=== PATIENT | female | born 1955 | race Caucasian/White ===

== ENCOUNTER 2017-02-02 09:59 | Inpatient (IN) | payer OTHER ==
[~2017-02-02] VITALS: Ht 167.6 cm; Wt 77.9 kg
[2017-02-02] VITALS (19 sets, daily range): BP systolic 79–158; BP diastolic 43–79; PULSE 62–75; RESP 11–22; Ht 167.6 cm; Wt 77.9 kg
[~2017-02-02 09:59] MED LIST: AMIT50TA3 PO; GABA300C PO; LORA0.5T PO; NAPR-688 PO; TRAM50TA2 PO
[2017-02-02] MEDS ORDERED: AMIT75TA2 PO (10:27)
[2017-02-02] MEDS ORDERED: FLUT16SP17 NASAL (10:28)
[2017-02-02] MEDS ORDERED: BIMA2.5D BOTH EYES (10:28)
[2017-02-02] MEDS ORDERED: MOME13HF2 INHALATION (10:28)
[2017-02-02] MEDS ORDERED: ALBU18HF INHALATION (10:29)
[2017-02-02] MEDS ORDERED: HYDR-905 PO (10:30)
[2017-02-02 12:09] LABS: ALBUMIN 4.5 g/dl (3.3-4.9); ALBUMIN/GLOBULIN RATIO 1.5; BILIRUBIN,INDIRECT 0.3 mg/dl (0-1.1); BILIRUBIN,TOTAL 0.3 mg/dl (0.2-1.3); TOTAL PROTEIN 7.5 g/dl (6.1-8.1)
[2017-02-02] MEDS ORDERED: GELATIN SIZE 100 SPONGE ONE ×2 (12:12→14:12)
[2017-02-02] MEDS ORDERED: BUPIVACAINE 0.5%/EPI (SDV) 30 ML INJ ONE (12:12)
[2017-02-02] MEDS ORDERED: THROMBIN 5000 UNIT VIAL ONE ×2 (12:13→14:12)
[2017-02-02] MEDS ORDERED: POLYMYXIN/BACITRACIN 1L IRRIG ONE (12:13)
[2017-02-02 12:14] LABS: CALCIUM 9.5 mg/dl (8.4-10.2); CREATININE 0.75 mg/dl (0.44-1.00); POTASSIUM 3.8 mmol/L (3.5-5.1)
--- NOTE | 2017-02-02 12:22 | HP ---
DATE OF ADMISSION: 02/02/2017 HISTORY OF PRESENT ILLNESS: Patient was originally seen in office for evaluation of back pain with radiation of pain to the lower extremities. She was diagnosed with lumbar spondylosis with stenosis, L4-5, S1, and conservative management was offered to the patient in the form of a lumbar epidural steroid injection. The patient has had 4 lumbar epidural steroid injections without much relief. She wants to have something more definitive to be done. She has failed injections. She has failed conservative management in the form of physical therapy, as well as pain management. The patient wants something more definitive to be done. PAST MEDICAL HISTORY AND PAST SURGICAL HISTORY: Per chart. SOCIAL HISTORY: Per chart. ALLERGIES: SULFA DRUGS. MEDICATIONS: Medications taken at home per chart. FAMILY HISTORY: Unremarkable. REVIEW OF SYSTEMS: Additional 10-point review of systems conducted. Pertinent positives stated in HPI, otherwise negative. PHYSICAL EXAMINATION: GENERAL APPEARANCE: Patient is awake, alert, oriented, follows commands. HEENT: Unremarkable. No cyanosis. Mouth: No lesions. PULMONARY: No dyspnea, no tachypnea. CARDIAC: No JVD. No pedal edema. ABDOMEN: Soft, with bowel sounds. No guarding. NEUROLOGIC: Moves upper extremities equally at the shoulders, elbows, wrists. Has good strength. Sensation is intact. Lower extremity examination: Flexion/extension of the lumbar spine: The patient develops severe low back pain with flexion and extension of the left hip. She has equal strength in her knees. Equal strength in ankles. Sensation is intact. DATA: MRI of the lumbar spine dated 09/25/2016, showed lumbar spondylosis with stenosis in all L4-5, S1. RECOMMENDATIONS: For patient to undergo surgical intervention in the form of a lumbar laminectomy, 4-5, sacral 1 with posterolateral fusion and pedicle screw instrumentation with possible interbody. This was discussed with the patient in great detail. Complications of surgery were discussed with the patient in detail including infection, bleeding, permanent nerve damage, , complications associated with anesthesia, including stroke, heart attack. The patient agrees and wants to proceed. Patient will be admitted to the hospital thereafter for further care and pain management. Dictated By: Herbert Gomes MD /jg/shasta /Document#: [id number]
[2017-02-02] MEDS ORDERED: MIDAZOLAM 1 MG/ML 2 ML INJ ONE (13:28)
[2017-02-02] MEDS ORDERED: hydrALAzine 20 MG INJ ONE (13:56)
[2017-02-02] MEDS ORDERED: niCARdipine 50 MG in SOD CHLORIDE 0.9% 480 ML IV PRN (14:00)
[2017-02-02] MEDS ORDERED: ONDANSETRON 4 MG INJ ONE (16:14)
[2017-02-02] MEDS ORDERED: ROCURONIUM 50 MG INJ ONE (16:15)
[2017-02-02] MEDS ORDERED: CEFAZOLIN 1 GM INJ ONE (16:15)
[2017-02-02] MEDS ORDERED: PROPOFOL 20 ML ONE (16:15)
[2017-02-02] MEDS ORDERED: LIDOCAINE 2% (SDV) 5 ML INJ ONE (16:15)
--- NOTE | 2017-02-02 16:17 | OPR ---
Date/Time of Note Date/Time of Note DATE: 02/02/17 TIME: 16:14 Operative Report Preoperative Diagnosis lumbar spondylosis with stenosis l4-5-s1 Postoperative Diagnosis same Operation/Procedure Performed lumbar 4-5-s1 laminectomy with posterolateral fusion and pedicle screw instrumentation Surgeon Jose Arguelles Roll Up Helper Jareth IRIZARRY Anesthesia Type: general Estimated Blood Loss: 200 - 250 ml's Transfusion none Specimen none Grafts/Implants pedicle screw instrumentation l4-5-s1 Complications none Procedure Description lumbar 4-5-s1 laminectomy with fusion and instrumentation JOSE ARGUELLES MD Feb 02, 2017 16:17
[2017-02-02] MEDS ORDERED: morphine 10 MG INJ ONE (16:22)
[2017-02-02] MEDS ORDERED: FENTAnyl 50 MCG/ML VIAL ONE (16:40)
[2017-02-02] MEDS: HYDROmorphONE 0.2 MG/ML PCA IV SCH (16:52)
[2017-02-02] MEDS ORDERED: DIPHENHYDRAMINE 50 MG INJ IV PRN (17:00)
[2017-02-02] MEDS ORDERED: HYDROmorphONE (0.2 MG/ML) 10ML SYG IV PRN ×2 (17:00)
[2017-02-02] MEDS ORDERED: MEPERIDINE 25 MG INJ IV PRN (17:00)
[2017-02-02] MEDS ORDERED: ONDANSETRON 4 MG INJ IV PRN (17:00)
[2017-02-02] MEDS ORDERED: METOCLOPRAMIDE 10 MG INJ IV PRN (17:00)
[2017-02-02] MEDS ORDERED: hydrALAzine 20 MG INJ IV PRN (17:00)
[2017-02-02] MEDS ORDERED: LABETALOL HCL 20MG INJ IV PRN (17:00)
[2017-02-02] MEDS ORDERED: FENTAnyl 50 MCG/ML VIAL IV PRN (17:00)
[2017-02-02] MEDS ORDERED: EPHEDrine SULFATE 50 MG/5 ML SYG IV PRN (17:30)
[2017-02-02] MEDS ORDERED: LACTATED RINGER'S 250 ML IV ONE (17:30)
--- NOTE | 2017-02-02 17:40 | HP ---
Date/Time of Note Date/Time of Note DATE: 02/02/17 TIME: 17:34 Assessment/Plan VTE Prophylaxis VTE Prophylaxis Intervention: SCD's Lines/Catheters IV Catheter Type (from Nrsg): Peripheral IV Assessment/Plan Assessment/Plan - Lumbar spondylosis with stenosis L4-5-S1. Status post lumbar L4-S5 laminectomy with posterolateral fusion and pedicle screws instrumentation by Dr. Gomes. Continue Dilaudid SIZE MAKER. - History of asthma, continue Dulera,continue Xopenex as needed for shortness of breath - Prediabetes, check hemoglobin A1c. - Chronic back pain - Depression, continue Elavil Further recommendations based on clinical course. Plan of care discussed with Dr. Craig. HPI/ROS Admit Date/Time Admit Date/Time Feb 02, 2017 at 09:59 Hx of Present Illness Patient is 61-year-old female with acute on chronic back pain. Patient was diagnosed with lumbar spondylosis with stenosis. Patient failed conservative treatment with steroids and physical therapy. Patient was evaluated by Dr. Gomes in orthopedic surgery consultation patient was brought to the hospital and underwent L4 S1 meniscectomy was posterior lateral fusion. Patient is a experienced significant pain in patient will be starting on Dilaudid SIZE MAKER and admitted for further management. PMH/Family/Social Past Medical History Medical History: other (Asthma) Past Surgical History Past Surgical Hx: no surgical history Family History Significant Family History: no pertinent family hx Social History Alcohol Use: none Smoking Status: Never smoker Drug Use: none Exam/Review of Systems Vital Signs Vitals Vital Signs Date Time Temp Pulse Resp B/P Pulse Ox O2 Delivery O2 Flow Rate FiO2 02/02/17 17:26 64 15 99/57 100 Nasal Cannula 02/02/17 16:36 8.0 02/02/17 16:31 98.7 Exam Constitutional: alert, oriented Head: normocephalic Neck: supple Respiratory: normal air movement Cardiovascular: nl pulses Gastrointestinal: non-tender, soft Musculoskeletal: other (Status post back surgery) Extremities: normal pulses Neurological: nl mental status Skin: nl turgor Labs Result Diagram: 02/02/17 1040 Medications Medications Current Medications Dextrose/Lactated Ringer's 1,000 ml @ 150 mls/hr Q6H40M IV ; Start 02/02/17 at 14:00 Cefazolin Sodium (Ancef 1 Gm/50 ml (Pmx)) 50 ml @ 100 mls/hr Q8 IVPB ; Start 02/02/17 at 14:00; Stop 02/04/17 at 14:00 Ondansetron HCl (Zofran Inj) 4 mg Q6H PRN IV NAUSEA AND/OR VOMITING; Start at 14:00 Hydromorphone HCl 6 mg 6 mg Q4PCA IV Last administered on 02/02/17 16:52; Admin Dose 6 MG; Start 02/02/17 at 17:00 Lactated Ringer's (Lr) 250 ml @ 250 mls/hr Q1H ONCE IV Last administered on 17:27; Admin Dose 250 MLS/HR; Start 02/02/17 at 17:30; Stop 02/02/17 at 18:29 DAWIT GARRETT Feb 02, 2017 17:40
[2017-02-02] MEDS ORDERED: LEVALBUTEROL (NEB) 0.63 MG/3 ML AMP HHN PRN (18:00)
[2017-02-02] MEDS: SALMETEROL/FLUTICASONE 250/50 INHA INH SCH (21:00)
[2017-02-02] MEDS: AMITRIPTYLINE 25 MG TAB PO SCH ×2 (21:00→23:52)
[2017-02-02] MEDS: DEXTROSE 5%-LR 1,000 ML IV SCH ×2 (21:01→22:13)
[2017-02-02] MEDS: CEFAZOLIN 1 GM/50 ML (PMX) 50 ML IVPB SCH ×2 (22:00→22:13)
--- NOTE | 2017-02-02 22:18 | RADRPT ---
PROCEDURE: Intraoperative fluoroscopy CLINICAL INDICATION: pain TECHNIQUE: Fluoroscopic spot images from an intraoperative procedure submitted. Fluoro time: 0.3 min Number of images/fluoroscopic sequences: 5 COMPARISON: none FINDINGS: Fluoroscopic images of the lumbar spine demonstrates posterior lumbar spine fusion at L4-S1. This as sumes there is no transitional anatomy. RPTAT: AA IMPRESSION: Intraoperative films of the lumbar spine were obtained. Please refer to the operative note for more information. .Blaine Kim MD, Date Time Electronically viewed and signed by .Blaine Kim MD, on 02/02/2017 22:18 .S/
[2017-02-02] MEDS: ONDANSETRON 4 MG INJ IV PRN (23:39)
[2017-02-03] VITALS: BP 114/54; RESP 18
[2017-02-03 02:00] VITALS: BP 110/55; RESP 19
[2017-02-03] MEDS: DEXTROSE 5%-LR 1,000 ML IV SCH ×4 (03:41→22:11)
[2017-02-03] MEDS: HYDROmorphONE 0.2 MG/ML PCA IV SCH ×2 (04:32→17:37)
[2017-02-03 06:09] LABS: BASOPHILS % 0.4 % (0.0-2.0); EOSINOPHILS % 0.2 % (0.0-7.0); HEMATOCRIT 30.7 % (37.0-47.0); HEMOGLOBIN 10.1 g/dl (12.0-16.0); LYMPHOCYTES # 2.9 10^3/ul (0.8-2.9); LYMPHOCYTES % 32.5 % (15.0-51.0); MEAN CORPUSCULAR HEMOGLOBIN 30.3 pg (29.0-33.0); MEAN CORPUSCULAR HGB CONC 32.9 g/dl (32.0-37.0); MEAN CORPUSCULAR VOLUME 92.2 fl (82.0-101.0); MEAN PLATELET VOLUME 9.2 fl (7.4-10.4); MONOCYTE # 0.6 10^3/ul (0.3-0.9); MONOCYTES % 6.7 % (0.0-11.0); NEUTROPHIL # 5.4 10^3/ul (1.6-7.5); NEUTROPHILS % 59.8 % (39.0-77.0); PLATELET COUNT 219 10^3/UL (140-415); RED BLOOD COUNT 3.33 10^6/ul (4.20-5.40); RED CELL DISTRIBUTION WIDTH 12.9 % (11.5-14.5)
[2017-02-03] MEDS: CEFAZOLIN 1 GM/50 ML (PMX) 50 ML IVPB SCH ×3 (06:57→21:29)
[2017-02-03 07:04] LABS: CALCIUM 8.3 mg/dl (8.4-10.2); CREATININE 0.7 mg/dl (0.44-1.00); POTASSIUM 3.9 mmol/L (3.5-5.1)
[2017-02-03] MEDS: ONDANSETRON 4 MG INJ IV PRN ×3 (07:28→21:29)
[2017-02-03 07:45] VITALS: BP 87/51; RESP 18
[2017-02-03] MEDS: SALMETEROL/FLUTICASONE 250/50 INHA INH SCH ×2 (09:44→21:18)
[2017-02-03 14:55] VITALS: BP 101/55; RESP 20
--- NOTE | 2017-02-03 15:50 | PN ---
Date/Time of Note Date/Time of Note DATE: 02/03/17 TIME: 15:46 Assessment/Plan VTE Prophylaxis VTE Prophylaxis Intervention: SCD's Lines/Catheters IV Catheter Type (from Nrsg): Peripheral IV Urinary Cath still in place: Yes Reason Cath still needed: urinary retention Assessment/Plan Chief Complaint/Hosp Course Patient is using Dilaudid SHEET METAL PATTERN CUTTER for pain, pain is well controlled, not cleared by surgery to start physical therapy yet. Assessment/Plan - Lumbar spondylosis with stenosis L4-5-S1. Status post lumbar L4-S5 laminectomy with posterolateral fusion and pedicle screws instrumentation by Dr. Gomes. Continue Dilaudid SHEET METAL PATTERN CUTTER. - History of asthma, continue Dulera,continue Xopenex as needed for shortness of breath - Prediabetes, check hemoglobin A1c. - Chronic back pain - Depression, continue Elavil Further recommendations based on clinical course. Plan of care discussed with Dr. Craig. Problems: Exam/Review of Systems Vital Signs Vitals Vital Signs Date Time Temp Pulse Resp B/P Pulse Ox O2 Delivery O2 Flow Rate FiO2 02/03/17 14:55 99.8 75 20 101/55 98 02/02/17 17:51 Nasal Cannula 2.0 Intake and Output 02/02/17 02/02/17 02/03/17 15:00 23:00 07:00 Intake Total 1850 ml 1000 ml Output Total 1050 ml 895 ml Balance -1050 ml 955 ml 1000 ml Exam Constitutional: alert, oriented Respiratory: normal air movement Cardiovascular: nl pulses Gastrointestinal: non-tender, soft Musculoskeletal: other (Status post back surgery) Extremities: normal pulses Neurological: nl mental status Results Result Diagram: 02/03/17 0433 02/03/17 0432 Results 24 hrs Laboratory Tests Test 02/03/17 04:32 02/03/17 04:33 02/03/17 06:05 Sodium Level 138 Potassium Level 3.9 Chloride Level 103 Carbon Dioxide Level 25 Anion Gap 14 Blood Urea Nitrogen 9 Creatinine 0.70 Glucose Level 124 Calcium Level 8.3 L White Blood Count 9.0 Red Blood Count 3.33 L Hemoglobin 10.1 L Hematocrit 30.7 L Mean Corpuscular Volume 92.2 Mean Corpuscular Hemoglobin 30.3 Mean Corpuscular Hemoglobin Concent 32.9 Red Cell Distribution Width 12.9 Platelet Count 219 Mean Platelet Volume 9.2 Neutrophils % 59.8 Lymphocytes % 32.5 Monocytes % 6.7 Eosinophils % 0.2 Basophils % 0.4 Nucleated Red Blood Cells % 0.0 Neutrophils # 5.4 Lymphocytes # 2.9 Monocytes # 0.6 Eosinophils # 0.0 Basophils # 0.0 Nucleated Red Blood Cells # 0.0 Lab Scanned Report LAB Medications Medications Current Medications Dextrose/Lactated Ringer's 1,000 ml @ 150 mls/hr Q6H40M IV Last administered on 02/03/17 14:34; Admin Dose 150 MLS/HR; Start 02/02/17 at 14:00 Cefazolin Sodium (Ancef 1 Gm/50 ml (Pmx)) 50 ml @ 100 mls/hr Q8 IVPB Last administered on 02/03/17 13:14; Admin Dose 100 MLS/HR; Start 02/02/17 at 14: 00; Stop 02/04/17 at 14:00 Ondansetron HCl (Zofran Inj) 4 mg Q6H PRN IV NAUSEA AND/OR VOMITING Last administered on 02/03/17 14:48; Admin Dose 4 MG; Start 02/02/17 at 14:00 Hydromorphone HCl (Dilaudid SHEET METAL PATTERN CUTTER) 6 mg Q4PCA IV Last administered on 02/03/17 04:32; Admin Dose 6 MG; Start 02/02/17 at 17:00 Amitriptyline HCl (Elavil) 75 mg QHS PO Last administered on 02/02/17 23:52; Admin Dose 75 MG; Start 02/02/17 at 21:00 Salmeterol Xinafoate/ Fluticasone (Advair 250/50 Diskus) 1 inh BID INH Last administered on 02/03/17 09:44; Admin Dose 1 INH; Start 02/02/17 at 21:00 DAWIT GARRETT Feb 03, 2017 15:50
[2017-02-03 19:10] VITALS: BP 115/58; RESP 16
[2017-02-03] MEDS: AMITRIPTYLINE 25 MG TAB PO SCH (21:18)
[2017-02-04 01:50] VITALS: BP 109/58; RESP 16
[2017-02-04] MEDS: ACETAMINOPHEN 325 MG TAB PO PRN ×2 (05:19→13:39)
[2017-02-04] MEDS: CEFAZOLIN 1 GM/50 ML (PMX) 50 ML IVPB SCH ×2 (05:19→13:39)
[2017-02-04 05:46] LABS: CALCIUM 8.5 mg/dl (8.4-10.2); CREATININE 0.58 mg/dl (0.44-1.00); POTASSIUM 3.7 mmol/L (3.5-5.1)
[2017-02-04] MEDS: DEXTROSE 5%-LR 1,000 ML IV SCH ×3 (06:21→19:41)
[2017-02-04] MEDS: HYDROmorphONE 0.2 MG/ML PCA IV SCH (06:59)
[2017-02-04 07:16] LABS: BASOPHILS % 0.2 % (0.0-2.0); EOSINOPHILS % 0.1 % (0.0-7.0); HEMATOCRIT 29.9 % (37.0-47.0); HEMOGLOBIN 9.8 g/dl (12.0-16.0); LYMPHOCYTES # 2.2 10^3/ul (0.8-2.9); LYMPHOCYTES % 22.6 % (15.0-51.0); MEAN CORPUSCULAR HEMOGLOBIN 30.5 pg (29.0-33.0); MEAN CORPUSCULAR HGB CONC 32.8 g/dl (32.0-37.0); MEAN CORPUSCULAR VOLUME 93.1 fl (82.0-101.0); MEAN PLATELET VOLUME 9.4 fl (7.4-10.4); MONOCYTE # 0.8 10^3/ul (0.3-0.9); MONOCYTES % 7.7 % (0.0-11.0); NEUTROPHIL # 6.8 10^3/ul (1.6-7.5); NEUTROPHILS % 69.1 % (39.0-77.0); PLATELET COUNT 197 10^3/UL (140-415); RED BLOOD COUNT 3.21 10^6/ul (4.20-5.40); RED CELL DISTRIBUTION WIDTH 12.5 % (11.5-14.5); WHITE BLOOD COUNT 9.8 10^3/ul (4.8-10.8)
[2017-02-04 08:30] VITALS: BP 120/58; RESP 18
[2017-02-04] MEDS: SALMETEROL/FLUTICASONE 250/50 INHA INH SCH ×2 (09:23→20:54)
[2017-02-04] MEDS: MAGNESIUM HYDROXIDE 30ML CUP PO PRN (13:39)
[2017-02-04] MEDS: ONDANSETRON 4 MG INJ IV PRN (13:42)
--- NOTE | 2017-02-04 14:10 | PN ---
Date/Time of Note Date/Time of Note DATE: 02/04/17 TIME: 14:08 Assessment/Plan VTE Prophylaxis VTE Prophylaxis Intervention: other Lines/Catheters IV Catheter Type (from Nrs): Peripheral IV Urinary Cath still in place: Yes Assessment/Plan Assessment/Plan - Lumbar spondylosis with stenosis L4-5-S1. - Status post lumbar L4-S5 laminectomy with posterolateral fusion and pedicle screws instrumentation by Dr. Gomes. 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 - History of asthma, continue Dulera,continue Xopenex as needed for shortness of breath - Prediabetes, check hemoglobin A1c. - Chronic back pain - Depression, continue Elavil Further recommendations based on clinical course. Plan of care discussed with Dr. Craig. Exam/Review of Systems Vital Signs Vitals Vital Signs Date Time Temp Pulse Resp B/P Pulse Ox O2 Delivery O2 Flow Rate FiO2 02/04/17 08:30 98.2 86 18 120/58 98 02/02/17 17:51 Nasal Cannula 2.0 Intake and Output 02/03/17 02/03/17 02/04/17 14:59 22:59 06:59 Intake Total 1100 ml 2150 ml 480 ml Output Total 200 ml 1680 ml 1965 ml Balance 900 ml 470 ml -1485 ml Exam Respiratory: clear to auscultation, diminished breath sounds Cardiovascular: nl pulses Gastrointestinal: non-tender, soft Neurological: other Results Result Diagram: 02/04/172 02/04/17 0445 Results 24 hrs Laboratory Tests Test 02/04/17 04:42 02/04/17 04:45 White Blood Count 9.8 Red Blood Count 3.21 L Hemoglobin 9.8 L Hematocrit 29.9 L Mean Corpuscular Volume 93.1 Mean Corpuscular Hemoglobin 30.5 Mean Corpuscular Hemoglobin Concent 32.8 Red Cell Distribution Width 12.5 Platelet Count 197 Mean Platelet Volume 9.4 Neutrophils % 69.1 Lymphocytes % 22.6 Monocytes % 7.7 Eosinophils % 0.1 Basophils % 0.2 Nucleated Red Blood Cells % 0.0 Neutrophils # 6.8 Lymphocytes # 2.2 Monocytes # 0.8 Eosinophils # 0.0 Basophils # 0.0 Nucleated Red Blood Cells # 0.0 Sodium Level 137 Potassium Level 3.7 Chloride Level 99 Carbon Dioxide Level 31 Anion Gap 11 Blood Urea Nitrogen 4 L Creatinine 0.58 Glucose Level 168 Hemoglobin A1c 5.8 Calcium Level 8.5 Medications Medications Current Medications Dextrose/Lactated Ringer's (D5-Lr) 1,000 ml @ 150 mls/hr Q6H40M IV Last administered on 02/04/17 09:23; Admin Dose 150 MLS/HR; Start 02/02/17 at 14: 00 Ondansetron HCl (Zofran Inj) 4 mg Q6H PRN IV NAUSEA AND/OR VOMITING Last administered on 02/04/17 13:42; Admin Dose 4 MG; Start 02/02/17 at 14:00 Hydromorphone HCl (Dilaudid BATTALION FIRE CHIEF) 6 mg Q4PCA IV Last administered on 02/04/17 06:59; Admin Dose 6 MG; Start 02/02/17 at 17:00 Amitriptyline HCl (Elavil) 75 mg QHS PO Last administered on 02/03/17 21:18; Admin Dose 75 MG; Start 02/02/17 at 21:00 Salmeterol Xinafoate/ Fluticasone (Advair 250/50 Diskus) 1 inh BID INH Last administered on 02/04/17 09:23; Admin Dose 1 INH; Start 02/02/17 at 21:00 Acetaminophen (Tylenol Tab) 650 mg Q6H PRN PO PAIN AND OR ELEVATED TEMP Last administered on 02/04/17 13:39; Admin Dose 650 MG; Start 02/03/17 at 22:00 Magnesium Hydroxide (Milk Of Mag) 30 ml DAILY PRN PO CONSTIPATION Last administered on 02/04/17 13:39; Admin Dose 30 ML; Start 02/04/17 at 11:00 Latanoprost (Xalatan) 1 drop HS BOTH EYES ; Start 02/04/17 at 21:00 SHELLY GEORGE Feb 04, 2017 14:10
--- NOTE | 2017-02-04 14:21 | CONS ---
Date/Time of Note Date/Time of Note DATE: 02/04/17 TIME: 14:19 Assessment/Plan Assessment/Plan Additional Assessment/Plan seen/examined awake/alert/follows/moves all feels better today sp l4-5-s1 lami with fusion/instrumentation drain dced pain meds adjusted encourage pt/ot vitals stable. Consultation Date/Type/Reason Admit Date/Time Feb 02, 2017 at 09:59 Exam/Review of Systems Vital Signs Vitals Vital Signs Date Time Temp Pulse Resp B/P Pulse Ox O2 Delivery O2 Flow Rate FiO2 02/04/17 08:30 98.2 86 18 120/58 98 02/02/17 17:51 Nasal Cannula 2.0 Intake and Output 02/03/17 02/03/17 02/04/17 15:00 23:00 07:00 Intake Total 1100 ml 2150 ml 480 ml Output Total 200 ml 1680 ml 1965 ml Balance 900 ml 470 ml -1485 ml Results Result Diagram: 02/04/17 0442 02/04/17 0445 Results 24 hrs Laboratory Tests Test 02/04/17 04:42 02/04/17 04:45 White Blood Count 9.8 Red Blood Count 3.21 L Hemoglobin 9.8 L Hematocrit 29.9 L Mean Corpuscular Volume 93.1 Mean Corpuscular Hemoglobin 30.5 Mean Corpuscular Hemoglobin Concent 32.8 Red Cell Distribution Width 12.5 Platelet Count 197 Mean Platelet Volume 9.4 Neutrophils % 69.1 Lymphocytes % 22.6 Monocytes % 7.7 Eosinophils % 0.1 Basophils % 0.2 Nucleated Red Blood Cells % 0.0 Neutrophils # 6.8 Lymphocytes # 2.2 Monocytes # 0.8 Eosinophils # 0.0 Basophils # 0.0 Nucleated Red Blood Cells # 0.0 Sodium Level 137 Potassium Level 3.7 Chloride Level 99 Carbon Dioxide Level 31 Anion Gap 11 Blood Urea Nitrogen 4 L Creatinine 0.58 Glucose Level 168 Hemoglobin A1c 5.8 Calcium Level 8.5 Medications Medications Current Medications Dextrose/Lactated Ringer's (D5-Lr) 1,000 ml @ 150 mls/hr Q6H40M IV Last administered on 02/04/17t 09:23; Admin Dose 150 MLS/HR; Start 02/02/17 at 14: 00 Ondansetron HCl (Zofran Inj) 4 mg Q6H PRN IV NAUSEA AND/OR VOMITING Last administered on 02/04/17 13:42; Admin Dose 4 MG; Start 02/02/17 at 14:00 Hydromorphone HCl (Dilaudid COOLING MACHINE OPERATOR) 6 mg Q4PCA IV Last administered on 02/04/17 06:59; Admin Dose 6 MG; Start 02/02/17 at 17:00 Amitriptyline HCl (Elavil) 75 mg QHS PO Last administered on 02/03/17 21:18; Admin Dose 75 MG; Start 02/02/17 at 21:00 Salmeterol Xinafoate/ Fluticasone (Advair 250/50 Diskus) 1 inh BID INH Last administered on 02/04/17 09:23; Admin Dose 1 INH; Start 02/02/17 at 21:00 Acetaminophen (Tylenol Tab) 650 mg Q6H PRN PO PAIN AND OR ELEVATED TEMP Last administered on 02/04/17 13:39; Admin Dose 650 MG; Start 02/03/17 at 22:00 Magnesium Hydroxide (Milk Of Mag) 30 ml DAILY PRN PO CONSTIPATION Last administered on 02/04/17 13:39; Admin Dose 30 ML; Start 02/04/17 at 11:00 Latanoprost (Xalatan) 1 drop HS BOTH EYES ; Start 02/04/17 at 21:00 NEHA ALVARADO PA-C Feb 04, 2017 14:21
[2017-02-04] MEDS: HYDROCODONE/APAP (10/325) TAB PO PRN ×2 (15:54→20:24)
[2017-02-04] MEDS: HYDROmorphONE 2 MG/ML SYG IV PRN (16:53)
[2017-02-04 19:38] VITALS: BP 128/68; RESP 22
[2017-02-04] MEDS: AMITRIPTYLINE 25 MG TAB PO SCH (20:53)
[2017-02-04] MEDS: LATANOPROST 0.005% 2.5 ML OPH BOTH EYES SCH (20:54)
[2017-02-04] MEDS ORDERED: BIMATOPROST 0.01% 2.5 ML BTL BOTH EYES SCH (21:00)
[2017-02-04] MEDS: ACET/BUTAL/CAFF TAB PO PRN (23:11)
[2017-02-05] MEDS: HYDROmorphONE 2 MG/ML SYG IV PRN ×4 (00:33→21:27)
[2017-02-05] MEDS: ONDANSETRON 4 MG INJ IV PRN (00:44)
[2017-02-05 02:00] VITALS: BP 119/72; RESP 20
[2017-02-05] MEDS: DEXTROSE 5%-LR 1,000 ML IV SCH ×4 (02:21→22:21)
[2017-02-05] MEDS: HYDROCODONE/APAP (10/325) TAB PO PRN ×3 (04:35→17:55)
[2017-02-05 05:20] LABS: BASOPHILS % 0.2 % (0.0-2.0); EOSINOPHILS % 0.3 % (0.0-7.0); HEMATOCRIT 27.7 % (37.0-47.0); HEMOGLOBIN 9.1 g/dl (12.0-16.0); LYMPHOCYTES # 2.7 10^3/ul (0.8-2.9); LYMPHOCYTES % 26.6 % (15.0-51.0); MEAN CORPUSCULAR HEMOGLOBIN 30.2 pg (29.0-33.0); MEAN CORPUSCULAR HGB CONC 32.9 g/dl (32.0-37.0); MONOCYTE # 0.7 10^3/ul (0.3-0.9); MONOCYTES % 6.7 % (0.0-11.0); NEUTROPHIL # 6.7 10^3/ul (1.6-7.5); NEUTROPHILS % 65.6 % (39.0-77.0); PLATELET COUNT 204 10^3/UL (140-415); RED BLOOD COUNT 3.01 10^6/ul (4.20-5.40); RED CELL DISTRIBUTION WIDTH 12.2 % (11.5-14.5); WHITE BLOOD COUNT 10.2 10^3/ul (4.8-10.8)
[2017-02-05 05:57] LABS: CALCIUM 8.5 mg/dl (8.4-10.2); CREATININE 0.6 mg/dl (0.44-1.00); POTASSIUM 3.9 mmol/L (3.5-5.1)
[2017-02-05 08:29] VITALS: BP 96/54; RESP 18
[2017-02-05] MEDS: SALMETEROL/FLUTICASONE 250/50 INHA INH SCH ×2 (10:24→20:56)
[2017-02-05] MEDS: ACET/BUTAL/CAFF TAB PO PRN ×2 (11:39→19:16)
[2017-02-05] MEDS ORDERED: DOCUSATE SODIUM 100 MG CAP PO SCH (12:30)
--- NOTE | 2017-02-05 13:13 | CONS ---
Date/Time of Note Date/Time of Note DATE: 02/05/17 TIME: 13:11 Assessment/Plan Assessment/Plan Additional Assessment/Plan seen/examined awake/alert/follows/moves all/sensation intact pt feels better today l4-5-s1 lami with fusion/instrumentation encourage pt/ot adjust pain meds, add flexeril dc craig. Consultation Date/Type/Reason Admit Date/Time Feb 02, 2017 at 09:59 Exam/Review of Systems Vital Signs Vitals Vital Signs Date Time Temp Pulse Resp B/P Pulse Ox O2 Delivery O2 Flow Rate FiO2 02/05/17 09:44 99.8 02/05/17 08:29 78 18 96/54 93 02/02/17 17:51 Nasal Cannula 2.0 Intake and Output 02/04/17 02/04/17 02/05/17 15:00 23:00 07:00 Intake Total 50 ml 1300 ml 1000 ml Output Total 800 ml 950 ml Balance 50 ml 500 ml 50 ml Results Result Diagram: 02/05/17 0430 02/05/17 0430 Results 24 hrs Laboratory Tests Test 02/05/17 04:30 White Blood Count 10.2 Red Blood Count 3.01 L Hemoglobin 9.1 L Hematocrit 27.7 L Mean Corpuscular Volume 92.0 Mean Corpuscular Hemoglobin 30.2 Mean Corpuscular Hemoglobin Concent 32.9 Red Cell Distribution Width 12.2 Platelet Count 204 Mean Platelet Volume 9.0 Neutrophils % 65.6 Lymphocytes % 26.6 Monocytes % 6.7 Eosinophils % 0.3 Basophils % 0.2 Nucleated Red Blood Cells % 0.0 Neutrophils # 6.7 Lymphocytes # 2.7 Monocytes # 0.7 Eosinophils # 0.0 Basophils # 0.0 Nucleated Red Blood Cells # 0.0 Sodium Level 136 Potassium Level 3.9 Chloride Level 100 Carbon Dioxide Level 31 Anion Gap 9 Blood Urea Nitrogen 6 L Creatinine 0.60 Glucose Level 145 Calcium Level 8.5 Medications Medications Current Medications Dextrose/Lactated Ringer's (D5-Lr) 1,000 ml @ 150 mls/hr Q6H40M IV Last administered on 02/05/17 04:37; Admin Dose 150 MLS/HR; Start 02/02/17 at 14: 00 Ondansetron HCl (Zofran Inj) 4 mg Q6H PRN IV NAUSEA AND/OR VOMITING Last administered on 02/05/17 00:44; Admin Dose 4 MG; Start 02/02/17 at 14:00 Amitriptyline HCl (Elavil) 75 mg QHS PO Last administered on 02/04/17 20:53; Admin Dose 75 MG; Start 02/02/17 at 21:00 Salmeterol Xinafoate/ Fluticasone (Advair 250/50 Diskus) 1 inh BID INH Last administered on 02/05/17 10:24; Admin Dose 1 INH; Start 02/02/17 at 21:00 Acetaminophen (Tylenol Tab) 650 mg Q6H PRN PO PAIN AND OR ELEVATED TEMP Last administered on 02/04/17 13:39; Admin Dose 650 MG; Start 02/03/17 at 22:00 Magnesium Hydroxide (Milk Of Mag) 30 ml DAILY PRN PO CONSTIPATION Last administered on 02/04/17 13:39; Admin Dose 30 ML; Start 02/04/17 at 11:00 Latanoprost (Xalatan) 1 drop HS BOTH EYES Last administered on 02/04/17 20:54 ; Admin Dose 1 DROP; Start 02/04/17 at 21:00 Acetaminophen/ Hydrocodone Bitart (Ringle (10/325)) 1 tab Q4H PRN PO moderate PAIN Last administered on 02/05/17 09:42; Admin Dose 1 TAB; Start 02/04/17 at 14:30 Acetaminophen/ Butalbital/ Caffeine (Fioricet) 1 tab Q4H PRN PO PAIN Last administered on 02/05/17 11:39; Admin Dose 1 TAB; Start 02/04/17 at 17:30 Docusate Sodium (Colace) 100 mg BID PO ; Start 02/05/17 at 12:30 Hydromorphone HCl (Dilaudid) 2 mg Q3 PRN IV severe pain; Start 02/05/17 at 12: 27 NEHA ALVARADO PA-C Feb 05, 2017 13:13
[2017-02-05] MEDS: CYCLOBENZAPRINE 10 MG TAB PO SCH ×2 (13:38→20:56)
[2017-02-05] MEDS: DOCUSATE SODIUM 250 MG CAP PO SCH (13:38)
--- NOTE | 2017-02-05 15:05 | PN ---
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 Assessment/Plan - Lumbar spondylosis with stenosis L4-5-S1. Status post lumbar L4-S5 laminectomy with posterolateral fusion and pedicle screws instrumentation by Dr. Gomes. Continue Dilaudid as needed for pain - History of asthma, continue Dulera,continue Xopenex as needed for shortness of breath - Prediabetes, check hemoglobin A1c. - Chronic back pain - Depression, continue Elavil Further recommendations based on clinical course. Plan of care discussed with Dr. Craig. Problems: Exam/Review of Systems Vital Signs Vitals Vital Signs Date Time Temp Pulse Resp B/P Pulse Ox O2 Delivery O2 Flow Rate FiO2 02/05/17 09:44 99.8 02/05/17 08:29 78 18 96/54 93 02/02/17 17:51 Nasal Cannula 2.0 Intake and Output 02/04/17 02/04/17 02/05/17 15:00 23:00 07:00 Intake Total 50 ml 1300 ml 1000 ml Output Total 800 ml 950 ml Balance 50 ml 500 ml 50 ml Exam Constitutional: alert, oriented Respiratory: normal air movement Cardiovascular: nl pulses Gastrointestinal: non-tender, soft Musculoskeletal: other (Status post back surgery) Extremities: normal pulses Neurological: nl mental status Results Result Diagram: 02/05/17 0430 02/05/17 0430 Results 24 hrs Laboratory Tests Test 02/05/17 04:30 White Blood Count 10.2 Red Blood Count 3.01 L Hemoglobin 9.1 L Hematocrit 27.7 L Mean Corpuscular Volume 92.0 Mean Corpuscular Hemoglobin 30.2 Mean Corpuscular Hemoglobin Concent 32.9 Red Cell Distribution Width 12.2 Platelet Count 204 Mean Platelet Volume 9.0 Neutrophils % 65.6 Lymphocytes % 26.6 Monocytes % 6.7 Eosinophils % 0.3 Basophils % 0.2 Nucleated Red Blood Cells % 0.0 Neutrophils # 6.7 Lymphocytes # 2.7 Monocytes # 0.7 Eosinophils # 0.0 Basophils # 0.0 Nucleated Red Blood Cells # 0.0 Sodium Level 136 Potassium Level 3.9 Chloride Level 100 Carbon Dioxide Level 31 Anion Gap 9 Blood Urea Nitrogen 6 L Creatinine 0.60 Glucose Level 145 Calcium Level 8.5 Medications Medications Current Medications Dextrose/Lactated Ringer's (D5-Lr) 1,000 ml @ 150 mls/hr Q6H40M IV Last administered on 02/05/17 04:37; Admin Dose 150 MLS/HR; Start 02/02/17 at 14: 00 Ondansetron HCl (Zofran Inj) 4 mg Q6H PRN IV NAUSEA AND/OR VOMITING Last administered on 02/05/17 00:44; Admin Dose 4 MG; Start 02/02/17 at 14:00 Amitriptyline HCl (Elavil) 75 mg QHS PO Last administered on 02/04/17 20:53; Admin Dose 75 MG; Start 02/02/17 at 21:00 Salmeterol Xinafoate/ Fluticasone (Advair 250/50 Diskus) 1 inh BID INH Last administered on 02/05/17 10:24; Admin Dose 1 INH; Start 02/02/17 at 21:00 Acetaminophen (Tylenol Tab) 650 mg Q6H PRN PO PAIN AND OR ELEVATED TEMP Last administered on 02/04/17 13:39; Admin Dose 650 MG; Start 02/03/17 at 22:00 Magnesium Hydroxide (Milk Of Mag) 30 ml DAILY PRN PO CONSTIPATION Last administered on 02/04/17 13:39; Admin Dose 30 ML; Start 02/04/17 at 11:00 Latanoprost (Xalatan) 1 drop HS BOTH EYES Last administered on 02/04/17 20:54 ; Admin Dose 1 DROP; Start 02/04/17 at 21:00 Acetaminophen/ Hydrocodone Bitart (Rock (10/325)) 1 tab Q4H PRN PO moderate PAIN Last administered on 02/05/17 09:42; Admin Dose 1 TAB; Start 02/04/17 at 14:30 Acetaminophen/ Butalbital/ Caffeine (Fioricet) 1 tab Q4H PRN PO PAIN Last administered on 02/05/17 11:39; Admin Dose 1 TAB; Start 02/04/17 at 17:30 Hydromorphone HCl (Dilaudid) 2 mg Q3 PRN IV severe pain Last administered on 14:23; Admin Dose 2 MG; Start 02/05/17 at 12:27 Cyclobenzaprine HCl (Flexeril) 5 mg TID PO Last administered on 02/05/17 13: 38; Admin Dose 5 MG; Start 02/05/17 at 13:30 Docusate Sodium (Colace) 250 mg DAILY PO Last administered on 02/05/17 13:38 ; Admin Dose 250 MG; Start 02/05/17 at 14:00 DAWIT GARRETT Feb 05, 2017 15:05
[2017-02-05 20:07] VITALS: BP 126/67; RESP 20
[2017-02-05] MEDS: MAGNESIUM HYDROXIDE 30ML CUP PO PRN (20:53)
[2017-02-05] MEDS: AMITRIPTYLINE 25 MG TAB PO SCH (20:56)
[2017-02-05] MEDS: LATANOPROST 0.005% 2.5 ML OPH BOTH EYES SCH (20:56)
[2017-02-05] MEDS ORDERED: CYCLOBENZAPRINE 10 MG TAB PO SCH (21:00)
[2017-02-06] MEDS: HYDROCODONE/APAP (10/325) TAB PO PRN ×5 (01:59→23:56)
[2017-02-06 02:21] VITALS: BP 128/60; RESP 22
[2017-02-06] MEDS: DEXTROSE 5%-LR 1,000 ML IV SCH ×3 (05:01→18:20)
[2017-02-06 05:15] LABS: BASOPHILS % 0.4 % (0.0-2.0); EOSINOPHILS # 0.2 10^3/ul (0.0-0.5); EOSINOPHILS % 1.8 % (0.0-7.0); HEMATOCRIT 27.3 % (37.0-47.0); HEMOGLOBIN 9.1 g/dl (12.0-16.0); MEAN CORPUSCULAR HEMOGLOBIN 30.6 pg (29.0-33.0); MEAN CORPUSCULAR HGB CONC 33.3 g/dl (32.0-37.0); MEAN CORPUSCULAR VOLUME 91.9 fl (82.0-101.0); MONOCYTE # 0.6 10^3/ul (0.3-0.9); NEUTROPHIL # 4.6 10^3/ul (1.6-7.5); NEUTROPHILS % 54.1 % (39.0-77.0); PLATELET COUNT 237 10^3/UL (140-415); RED BLOOD COUNT 2.97 10^6/ul (4.20-5.40); RED CELL DISTRIBUTION WIDTH 12.2 % (11.5-14.5); WHITE BLOOD COUNT 8.4 10^3/ul (4.8-10.8)
[2017-02-06 05:56] LABS: CALCIUM 8.4 mg/dl (8.4-10.2); CREATININE 0.71 mg/dl (0.44-1.00); POTASSIUM 3.9 mmol/L (3.5-5.1)
[2017-02-06] MEDS: HYDROmorphONE 2 MG/ML SYG IV PRN (06:00)
[2017-02-06] MEDS: ONDANSETRON 4 MG INJ IV PRN (06:01)
[2017-02-06 08:27] VITALS: BP 127/62; RESP 20
[2017-02-06] MEDS: CYCLOBENZAPRINE 10 MG TAB PO SCH ×3 (08:27→20:43)
[2017-02-06] MEDS: DOCUSATE SODIUM 250 MG CAP PO SCH (08:29)
[2017-02-06] MEDS: SALMETEROL/FLUTICASONE 250/50 INHA INH SCH ×2 (08:29→20:44)
[2017-02-06] MEDS ORDERED: DOCUSATE SODIUM 250 MG CAP PO SCH (09:00)
[2017-02-06] MEDS: FAMOTIDINE 20 MG TAB PO SCH ×2 (11:30→20:42)
[2017-02-06] MEDS: ACET/BUTAL/CAFF TAB PO PRN (11:30)
[2017-02-06 14:00] VITALS: BP 116/68; RESP 18
[2017-02-06] MEDS ORDERED: CALCIUM CARBONATE 500 MG CHEW TAB PO PRN (18:30)
[2017-02-06 20:00] VITALS: BP 133/76; RESP 18
[2017-02-06] MEDS: LATANOPROST 0.005% 2.5 ML OPH BOTH EYES SCH (20:44)
[2017-02-06] MEDS: AMITRIPTYLINE 25 MG TAB PO SCH (20:44)
[2017-02-07] MEDS: DEXTROSE 5%-LR 1,000 ML IV SCH ×4 (01:01→21:01)
[2017-02-07 01:50] VITALS: BP 132/70; RESP 18
[2017-02-07] MEDS: HYDROmorphONE 2 MG/ML SYG IV PRN ×6 (02:29→21:33)
[2017-02-07] MEDS: HYDROCODONE/APAP (10/325) TAB PO PRN ×4 (06:42→18:45)
[2017-02-07] MEDS: SALMETEROL/FLUTICASONE 250/50 INHA INH SCH ×2 (08:42→21:56)
[2017-02-07] MEDS: FAMOTIDINE 20 MG TAB PO SCH ×2 (08:42→21:57)
[2017-02-07] MEDS: CYCLOBENZAPRINE 10 MG TAB PO SCH ×3 (08:42→21:57)
[2017-02-07] MEDS: DOCUSATE SODIUM 250 MG CAP PO SCH (08:42)
[2017-02-07 08:43] VITALS: BP 119/70; RESP 18
[2017-02-07 20:00] VITALS: BP 114/62; RESP 18
[2017-02-07] MEDS: AMITRIPTYLINE 25 MG TAB PO SCH (21:56)
[2017-02-07] MEDS: LATANOPROST 0.005% 2.5 ML OPH BOTH EYES SCH (21:56)
[2017-02-08 01:38] VITALS: BP 121/62; RESP 18
[2017-02-08] MEDS: HYDROmorphONE 2 MG/ML SYG IV PRN ×5 (02:09→22:32)
[2017-02-08] MEDS: DEXTROSE 5%-LR 1,000 ML IV SCH ×4 (03:41→20:31)
[2017-02-08 08:06] VITALS: BP 119/58; PULSE 88; RESP 12
[2017-02-08] MEDS: HYDROCODONE/APAP (10/325) TAB PO PRN ×3 (08:53→19:47)
[2017-02-08] MEDS: DOCUSATE SODIUM 250 MG CAP PO SCH (09:13)
[2017-02-08] MEDS: FAMOTIDINE 20 MG TAB PO SCH ×2 (09:13→21:10)
[2017-02-08] MEDS: CYCLOBENZAPRINE 10 MG TAB PO SCH ×3 (09:13→21:10)
[2017-02-08] MEDS: MAGNESIUM HYDROXIDE 30ML CUP PO PRN (09:13)
[2017-02-08] MEDS: SALMETEROL/FLUTICASONE 250/50 INHA INH SCH ×2 (09:17→21:09)
[2017-02-08 15:18] VITALS: BP 132/72; PULSE 84; RESP 14
--- NOTE | 2017-02-08 15:29 | PN ---
Date/Time of Note Date/Time of Note DATE: 02/08/17 TIME: 15:28 Assessment/Plan VTE Prophylaxis VTE Prophylaxis Intervention: SCD's Lines/Catheters IV Catheter Type (from Nrsg): [place] Lock Urinary Cath still in place: No Assessment/Plan Chief Complaint/Hosp Course Patient complains of significant amount of pain requiring Dilaudid, encourage [place], weaned off Dilaudid IV, continue PT. Assessment/Plan - Lumbar spondylosis with stenosis L4-5-S1. Status post lumbar L4-S5 laminectomy with posterolateral fusion and pedicle screws instrumentation by Dr. Gomes. Continue [place] and Dilaudid as needed for pain - History of asthma, continue Dulera,continue Xopenex as needed for shortness of breath - Prediabetes, check hemoglobin A1c. - Chronic back pain - Depression, continue Elavil Further recommendations based on clinical course. Plan of care discussed with Dr. Craig. Problems: Exam/Review of Systems Vital Signs Vitals Vital Signs Date Time Temp Pulse Resp B/P Pulse Ox O2 Delivery O2 Flow Rate FiO2 02/08/17 15:18 98.4 84 14 132/72 97 Room Air Intake and Output 02/07/17 02/07/17 02/08/17 14:59 22:59 06:59 Intake Total 700 ml Output Total 600 ml Balance 100 ml Exam Constitutional: alert, oriented Respiratory: normal air movement Cardiovascular: nl pulses Gastrointestinal: non-tender, soft Musculoskeletal: other (Status post back surgery) Extremities: normal pulses Neurological: nl mental status Results Result Diagram: 02/06/17 0435 02/06/17 0435 Medications Medications Current Medications Dextrose/Lactated Ringer's (D5-Lr) 1,000 ml @ 150 mls/hr Q6H40M IV Last administered on 02/05/17 04:37; Admin Dose 150 MLS/HR; Start 02/02/17 at 14: 00 Ondansetron HCl (Zofran Inj) 4 mg Q6H PRN IV NAUSEA AND/OR VOMITING Last administered on 02/06/17 06:01; Admin Dose 4 MG; Start 02/02/17 at 14:00 Amitriptyline HCl (Elavil) 75 mg QHS PO Last administered on 02/07/17 21:56; Admin Dose 75 MG; Start 02/02/17 at 21:00 Salmeterol Xinafoate/ Fluticasone (Advair 250/50 Diskus) 1 inh BID INH Last administered on 02/08/17 09:17; Admin Dose 1 INH; Start 02/02/17 at 21:00 Acetaminophen (Tylenol Tab) 650 mg Q6H PRN PO PAIN AND OR ELEVATED TEMP Last administered on 02/04/17 13:39; Admin Dose 650 MG; Start 02/03/17 at 22:00 Magnesium Hydroxide (Milk Of Mag) 30 ml DAILY PRN PO CONSTIPATION Last administered on 02/08/17 09:13; Admin Dose 30 ML; Start 02/04/17 at 11:00 Latanoprost (Xalatan) 1 drop HS BOTH EYES Last administered on 02/07/17 21:56 ; Admin Dose 1 DROP; Start 02/04/17 at 21:00 Acetaminophen/ Hydrocodone Bitart ([place] (10/325)) 1 tab Q4H PRN PO moderate PAIN Last administered on 02/08/17 13:16; Admin Dose 1 TAB; Start 02/04/17 at 14:30 Acetaminophen/ Butalbital/ Caffeine (Fioricet) 1 tab Q4H PRN PO PAIN Last administered on 02/06/17 11:30; Admin Dose 1 TAB; Start 02/04/17 at 17:30 Cyclobenzaprine HCl (Flexeril) 5 mg TID PO Last administered on 02/08/17 13: 16; Admin Dose 5 MG; Start 02/05/17 at 13:30 Docusate Sodium (Colace) 250 mg DAILY PO Last administered on 02/08/17 09:13 ; Admin Dose 250 MG; Start 02/05/17 at 14:00 Famotidine (Pepcid) 20 mg BID PO Last administered on 02/08/17 09:13; Admin Dose 20 MG; Start 02/06/17 at 11:00 Calcium Carbonate (Tums) 500 mg BID PRN PO HEARTBURN Last administered on 02/06 18:34; Admin Dose 500 MG; Start 02/06/17 at 18:30 Hydromorphone HCl (Dilaudid) 2 mg Q4 PRN IV severe pain; Start 02/08/17 at 15: 15 DAWIT GARRETT Feb 08, 2017 15:29
[2017-02-08 20:27] VITALS: BP 168/78; RESP 20
[2017-02-08] MEDS: LATANOPROST 0.005% 2.5 ML OPH BOTH EYES SCH (21:09)
[2017-02-08] MEDS: AMITRIPTYLINE 25 MG TAB PO SCH (21:10)
[2017-02-09] MEDS: HYDROCODONE/APAP (10/325) TAB PO PRN (02:48)
[2017-02-09 02:51] VITALS: BP 148/75; PULSE 78; RESP 20
[2017-02-09] MEDS: HYDROmorphONE 2 MG/ML SYG IV PRN (04:46)
[2017-02-09] MEDS: DEXTROSE 5%-LR 1,000 ML IV SCH ×3 (06:21→18:43)
[2017-02-09] MEDS ORDERED: POLYETHYLENE GLYCOL 17 GM PACKET PO PRN (08:30)
[2017-02-09 08:47] VITALS: BP 124/63; RESP 20
[2017-02-09] MEDS: DOCUSATE SODIUM 250 MG CAP PO SCH (08:59)
[2017-02-09] MEDS: FAMOTIDINE 20 MG TAB PO SCH (08:59)
[2017-02-09] MEDS: CYCLOBENZAPRINE 10 MG TAB PO SCH ×2 (09:00→13:07)
[2017-02-09] MEDS: SALMETEROL/FLUTICASONE 250/50 INHA INH SCH (09:00)
[2017-02-09] MEDS: HYDROCODONE/APAP (7.5/325) TAB PO PRN ×3 (09:01→17:40)
[2017-02-09 09:38] LABS: BASOPHILS % 0.5 % (0.0-2.0); EOSINOPHILS # 0.3 10^3/ul (0.0-0.5); EOSINOPHILS % 3.8 % (0.0-7.0); HEMATOCRIT 33.4 % (37.0-47.0); HEMOGLOBIN 10.9 g/dl (12.0-16.0); LYMPHOCYTES # 3.9 10^3/ul (0.8-2.9); LYMPHOCYTES % 46.2 % (15.0-51.0); MEAN CORPUSCULAR HEMOGLOBIN 29.9 pg (29.0-33.0); MEAN CORPUSCULAR HGB CONC 32.6 g/dl (32.0-37.0); MEAN CORPUSCULAR VOLUME 91.8 fl (82.0-101.0); MEAN PLATELET VOLUME 8.2 fl (7.4-10.4); MONOCYTE # 0.5 10^3/ul (0.3-0.9); MONOCYTES % 6.4 % (0.0-11.0); NEUTROPHIL # 3.5 10^3/ul (1.6-7.5); NEUTROPHILS % 41.8 % (39.0-77.0); PLATELET COUNT 389 10^3/UL (140-415); RED BLOOD COUNT 3.64 10^6/ul (4.20-5.40); RED CELL DISTRIBUTION WIDTH 12.2 % (11.5-14.5); WHITE BLOOD COUNT 8.3 10^3/ul (4.8-10.8)
[2017-02-09 10:08] LABS: CALCIUM 9.9 mg/dl (8.4-10.2); CREATININE 0.74 mg/dl (0.44-1.00); POTASSIUM 4.5 mmol/L (3.5-5.1)
[2017-02-09] MEDS: HYDROmorphONE 1 MG/ML SYG IV PRN ×2 (10:37→15:49)
[2017-02-09] MEDS ORDERED: HYDR-3605 PO (16:51)
[2017-02-09] MEDS ORDERED: CYCL-319 PO (16:51)
--- NOTE | 2017-02-09 16:56 | DS ---
Date/Time of Note Date/Time of Note DATE: 02/09/17 TIME: 16:56 Discharge Summary Admission/Discharge Info Admit Date/Time Feb 02, 2017 at 09:59 Discharge Date/Time Patient Condition: Stable Hx of Present Illness Patient is 61-year-old female with acute on chronic back pain. Patient was diagnosed with lumbar spondylosis with stenosis. Patient failed conservative treatment with steroids and physical therapy. Patient was evaluated by Dr. Gomes in orthopedic surgery consultation patient was brought to the hospital and underwent L4 S1 meniscectomy was posterior lateral fusion. Patient is a experienced significant pain in patient will be starting on Dilaudid [employer] and admitted for further management. Hospital Course Patient discharged home with home health PT services - Lumbar spondylosis with stenosis L4-5-S1. Status post lumbar L4-S5 laminectomy with posterolateral fusion and pedicle screws instrumentation by Dr. Gomes. Continue [place] and Dilaudid as needed for pain - History of asthma, continue Dulera,continue Xopenex as needed for shortness of breath - Prediabetes, check hemoglobin A1c. - Chronic back pain - Depression, continue Elavil Home Meds Active Scripts Cyclobenzaprine Hcl* (Cyclobenzaprine Hcl*) 10 Mg Tablet, 10 MG PO TID for 30 Days, TAB Prov:DAWIT GARRETT 02/09/17 Hydrocodone/Acetaminophen (Hydrocodon-Acetaminoph 7.5-325) 1 Each Tablet, 2 TAB PO Q4H Y for PAIN, #30 TAB Prov:DAWIT GARRETT 02/09/17 Reported Medications Hydrocodone/Acetaminophen ([place] 7.5-325 Tablet) 1 Each Tablet, 1 EACH PO TID Y for PAIN, TAB 02/02/17 Albuterol Sulfate* (Ventolin HFA*) 18 Gm Hfa.aer.ad, 2 PUFF INHALATION Q6H Y for WHEEZING AND SOB, #1 INHALER 02/02/17 Bimatoprost* (Lumigan*) 0.01%-2.5 Ml Opht Drops, 1 DROP BOTH EYES HS, EA 02/02/17 Fluticasone Propionate* (Fluticasone Propionate* Nasal) 50 Mcg/[place] - 16 Gm [place].susp, 2 SPRAYS NASAL DAILY, #1 BOTTLE TO EACH NOSTRIL 02/02/17 Mometasone-Formoterol (Dulera) 100-5 Mcg - 13 Gm Hfa.aer.ad, 2 PUFFS INHALATION BID, #1 INHALER 02/02/17 Amitriptyline Hcl* (Amitriptyline Hcl*) 75 Mg Tablet, 75 MG PO QHS, #30 TAB 02/02/17 Tramadol HCl (Tramadol HCl) 50 Mg Tab, 50 MG PO Q6H Y for PAIN, TAB 10/05/14 Discontinued Reported Medications Naproxen* (Naproxen*) 500 Mg Tablet, 500 MG PO BID Y for INFLAMATION, TAB 10/05/14 Amitriptyline Hcl* (Amitriptyline Hcl*) 50 Mg Tablet, 50 MG PO HS, TAB 10/05/14 Gabapentin* (Neurontin*) 300 Mg Capsule, 300 MG PO DAILY, CAP 10/05/14 Lorazepam* (Lorazepam*) 0.5 Mg Tablet, 0.5 MG PO DAILY Y for ANXIETY, TAB 10/05/14 Follow-up Plan Follow-up with Dr. Gomes in 1-2 weeks Primary Care Provider [facility] Time spent on discharge: > 30 minutes Pending Labs Laboratory Tests Test 02/09/17 09:15 White Blood Count 8.310^3/ul (4.8-10.8) Red Blood Count 3.6410^6/ul (4.20-5.40) Hemoglobin 10.9g/dl (12.0-16.0) Hematocrit 33.4% (37.0-47.0) Mean Corpuscular Volume 91.8fl (82.0-101.0) Mean Corpuscular Hemoglobin 29.9pg (29.0-33.0) Mean Corpuscular Hemoglobin Concent 32.6g/dl (32.0-37.0) Red Cell Distribution Width 12.2% (11.5-14.5) Platelet Count 66179^3/UL (140-415) Mean Platelet Volume 8.2fl (7.4-10.4) Neutrophils % 41.8% (39.0-77.0) Lymphocytes % 46.2% (15.0-51.0) Monocytes % 6.4% (0.0-11.0) Eosinophils % 3.8% (0.0-7.0) Basophils % 0.5% (0.0-2.0) Nucleated Red Blood Cells % 0.0/100WBC (0.0-0.0) Neutrophils # 3.510^3/ul (1.6-7.5) Lymphocytes # 3.910^3/ul (0.8-2.9) Monocytes # 0.510^3/ul (0.3-0.9) Eosinophils # 0.310^3/ul (0.0-0.5) Basophils # 0.010^3/ul (0.0-0.1) Nucleated Red Blood Cells # 0.010^3/ul (0.0-0.0) Sodium Level 138mmol/L (135-144) Potassium Level 4.5mmol/L (3.5-5.1) Chloride Level 98mmol/L (97-110) Carbon Dioxide Level 29mmol/L (21-31) Anion Gap 16 (8-16) Blood Urea Nitrogen 12mg/dl (7-20) Creatinine 0.74mg/dl (0.44-1.00) Glucose Level 165mg/dl (70-220) Calcium Level 9.9mg/dl (8.4-10.2) DAWIT GARRETT Feb 09, 2017 16:56
== END 2017-02-09 18:50 | disposition home health service (06) | DRG 460 ==
LOC: REC 09:59 → MS1 18:15
PROVIDERS: ADMIT Neurological Surgery; ATTEND Neurological Surgery
PROC: 0SG10AJ Fusion of 2 or more Lumbar Vertebral Joints with Interbody Fusion Device, Posterior Approach, Anterior Column, Open Approach (ICD-10-PCS; principal; 2017-02-02 12:30)
DX: M47.27 Other spondylosis with radiculopathy, lumbosacral region (principal); F32.9 Major depressive disorder, single episode, unspecified; M48.07 Spinal stenosis, lumbosacral region; J45.909 Unspecified asthma, uncomplicated; R73.03 Prediabetes
CPT/HCPCS: 72114; 80048; 80053; 83036; 85025; 86850; 86900; 86901; 87086; 97116; 97163; 97530; C1713; C1762; J0360; J0690; J1170; J2250; J2270; J2405; J3010; J7121

== ENCOUNTER 2018-07-18 09:01 | Day surgery (SDC) | payer OTHER ==
[~2018-07-18] VITALS: Ht 167.6 cm; Wt 79.5 kg
[~2018-07-18 09:01] MED LIST changes: +ALBU18HF INHALATION; -AMIT50TA3 PO; +AMIT75TA2 PO; +BIMA2.5D BOTH EYES; +CYCL10TA7 PO; +FLUT16SP17 NASAL; -GABA300C PO; +HYDR-3605 PO; +HYDR-4012 PO; -LORA0.5T PO; +MOME13HF2 INHALATION; -NAPR-688 PO
[2018-07-18 10:52] VITALS: Ht 167.6 cm; Wt 79.5 kg
[2018-07-18] MEDS ORDERED: LIPITOR PO (11:02)
[2018-07-18] MEDS ORDERED: METFORMIN PO (11:02)
--- NOTE | 2018-07-18 11:29 | PREAC ---
Date/Time of Note Date/Time of Note DATE: 07/18/18 TIME: Anesthesia Eval and Record Evaluation Time Pre-Procedure Interview DATE: 07/18/18 TIME: Age 62 Sex female NPO: 8 hrs Preoperative diagnosis SCREENING Planned procedure COLONOSCOPY Past Medical History Past Medical History: Includes Cardio: Dyslipidemia Endo: Diabetes Pulm: Asthma Neuro: Other (BACK PAIN ) Surgery & Anesthesia Issues No known issue Meds Anticoagulation: No Beta Lyn within 24 hr: No Reason Beta Lyn not given: Pt. not on B-Lyn Reported Medications [Lipitor] No Conflict Check, PO 07/18/18 [Metformin] No Conflict Check, PO 07/18/18 Hydrocodone/Acetaminophen ([place] 7.5-325 Tablet) 1 Each Tablet, 1 EACH PO TID PRN for PAIN, TAB 02/02/17 Albuterol Sulfate* (Ventolin HFA*) 18 Gm Hfa.aer.ad, 2 PUFF INHALATION Q6H PRN for WHEEZING AND SOB, #1 INHALER 02/02/17 Amitriptyline Hcl* (Amitriptyline Hcl*) 75 Mg Tablet, 75 MG PO QHS, #30 TAB 02/02/17 Discontinued Reported Medications Bimatoprost* (Lumigan*) 0.01%-2.5 Ml Opht Drops, 1 DROP BOTH EYES HS, EA 02/02/17 Fluticasone Propionate* (Fluticasone Propionate* Nasal) 50 Mcg/[place] - 16 Gm [place].susp, 2 SPRAYS NASAL DAILY, #1 BOTTLE TO EACH NOSTRIL 02/02/17 Mometasone-Formoterol (Dulera) 100-5 Mcg - 13 Gm Hfa.aer.ad, 2 PUFFS INHALATION BID, #1 INHALER 02/02/17 Tramadol HCl (Tramadol HCl) 50 Mg Tab, 50 MG PO Q6H PRN for PAIN, TAB 10/05/14 Discontinued Scripts Cyclobenzaprine Hcl* (Cyclobenzaprine Hcl*) 10 Mg Tablet, 10 MG PO TID for 30 Days, TAB Prov:DAWIT GARRETT 02/09/17 Hydrocodone/Acetaminophen (Hydrocodon-Acetaminoph 7.5-325) 1 Each Tablet, 2 TAB PO Q4H PRN for PAIN, #30 TAB Prov:DAWIT GARRETT 02/09/17 Meds reviewed: Yes Allergies Coded Allergies: No Known Allergy (Unverified , 02/02/17) Allergies Reviewed: Yes Labs/Studies Labs Reviewed: Reviewed by anesthesiologist test: N/A Pre-procedure Exam Airway: Adequate mouth opening, Adequate thyromental dist Mallampati: Mallampati II Teeth: Normal Lung: Normal Heart: Normal ASA Physical Status ASA physical status: 2 Emergency: None Pre-operative Attestations Prior to commencing anesthesia and surgery, the patient was re-evaluated, there was verification of: *The patient's identity *The results of appropriate recent lab work and preoperative vital signs *The above evaluation not changing prior to induction *Anesthetic plan, risk benefits, alternative and complications discussed with patient/family; questions answered; patient/family understands, accepts and wishes to proceed. CHERIE MADRID DO July 18, 2018 11:29
[2018-07-18 11:30] VITALS: BP 155/81; PULSE 75; RESP 18
[2018-07-18] MEDS ORDERED: LIDOCAINE 2% (SDV) 5 ML INJ ONE (11:30)
[2018-07-18] MEDS ORDERED: PROPOFOL 40 ML ONE (11:30)
[2018-07-18] MEDS ORDERED: FENTAnyl 50 MCG/ML VIAL ONE (11:31)
[2018-07-18] MEDS ORDERED: MIDAZOLAM 1 MG/ML 2 ML INJ ONE (11:31)
--- NOTE | 2018-07-18 11:53 | PAC ---
Date/Time of Note Date/Time of Note DATE: 07/18/18 TIME: 11:52 Post-Anesthesia Notes Post-Anesthesia Note Last documented vital signs 115/60 75 99% 18 98 Activity: WNL Respiratory function: WNL Cardiovascular function: WNL Mental status: Baseline Pain reasonably controlled: Yes Hydration appropriate: Yes Nausea/Vomiting absent: Yes CHERIE MADRID DO July 18, 2018 11:53
[2018-07-18 12:00] VITALS: BP 143/80; PULSE 80; RESP 18
[2018-07-18 12:05] VITALS: BP 142/83; PULSE 74
[2018-07-18 12:54] VITALS: BP 146/77; PULSE 70; RESP 15
--- NOTE | 2018-07-19 07:01 | CONS ---
DATE OF ADMISSION: 07/18/2018 DATE OF CONSULTATION: PATIENT NAME: INDIGO VALDEZ TYPE OF CONSULTATION: Preoperative gastroenterology. Dear Graciela: I thank you very much for this kind referral. HISTORY OF PRESENT ILLNESS: Ms. Indigo Valdez is a 62-year-old female patient who has been referred to me for further evaluation of right lower quadrant abdominal pain with change in the bowel habit. The patient had abdominal CT scan done and she was noted to have thickening of the rectal wall and po ssible polypoid lesion inside the rectum. The patient denies any history of rectal bleeding. No pas t history of colon neoplasm. She never had screening colonoscopy. Appetite is good, no weight loss. No upper abdominal pain. The patient takes Roulette for degenerative joint disease of the back. No g allstones. She has fatty liver. Not a hypertensive. She has diabetes. No heart disease. She has bronchial asthma. No kidney disease. SOCIAL HISTORY: Nonsmoker. No alcohol abuse. FAMILY HISTORY: The patient's mother had stomach cancer. ALLERGIES: NO DRUG ALLERGIES. MEDICATIONS: 1. Metformin. 2. Roulette. 3. Albuterol inhaler. PHYSICAL EXAMINATION: GENERAL: She is 5 feet 6 inches tall and weighs 170 pounds. HEART: Normal heart sounds. LUNGS: Clear. ABDOMEN: Soft, no masses. Normal bowel sounds. RECTAL: Examination deferred per the patient's request. It will be done at the time of colonoscopy. NEUROLOGIC: Normal neurological exam. IMPRESSION: 1. Right lower quadrant abdominal pain. 2. Change in the bowel habit. 3. The patient had abdominal CT scan done and she was noted to have thickening of the rectal wall an d possible polypoid lesion inside the rectum. 4. The patient never had screening colonoscopy. 5. Fatty liver. 6. Diabetes mellitus. 7. Bronchial asthma. 8. Degenerative joint disease of the back and status post back surgery. 9. The patient is on Roulette. 10. The patient's mother had stomach cancer. PLAN: 1. Colonoscopy for further evaluation. 2. Because of the obesity with a short thick neck and history of Roulette use which makes her resistant to narcotics along with a history of bronchial asthma, she needs monitored anesthesia care. 3. The patient was strongly advised to lose weight, have a low-fat diet and have a good control of s judy lipids because of fatty liver. The procedure and possible complications are well explained to the patient. She understands and cons ents to the procedure. I thank you once again. With warmest personal regards, Dictated By: JUAN MUNROE/MERLENE Conf#: [id number] DID#: [id number]
== END 2018-07-18 14:38 | disposition home or self-care (01) ==
LOC: GIL 09:01
PROVIDERS: ATTEND Internal Medicine Gastroenterology
DX: Z12.11 Encounter for screening for malignant neoplasm of colon (principal); K64.8 Other hemorrhoids; D12.0 Benign neoplasm of cecum; R10.31 Right lower quadrant pain; J45.909 Unspecified asthma, uncomplicated; K76.0 Fatty (change of) liver, not elsewhere classified; E11.8 Type 2 diabetes mellitus with unspecified complications; Z79.84 Long term (current) use of oral hypoglycemic drugs; Z80.0 Family history of malignant neoplasm of digestive organs
CPT/HCPCS: 45380; 82962; 88305; J2250; J3010; Z7610

== ENCOUNTER 2018-10-10 06:56 | Day surgery (SDC) | payer OTHER ==
[~2018-10-10] VITALS: Ht 162.6 cm; Wt 77.2 kg
[2018-10-10] VITALS (12 sets, daily range): BP systolic 114–135; BP diastolic 61–77; PULSE 65–76; RESP 16–20; Ht 162.6 cm; Wt 77.2 kg
[~2018-10-10 06:56] MED LIST changes: +ALBU8.5H8 INH; +AMIT50TA3 PO; +ATOR40TA68 PO; -BIMA2.5D BOTH EYES; -CYCL10TA7 PO; -FLUT16SP17 NASAL; -HYDR-3605 PO; +HYDR-4011 PO; +LIPITOR PO; +METF500T24 PO; +METFORMIN PO; +MITOMYCIN 5 MG INJ LEFT EYE SCH; +MOME13HF INHALATION; -MOME13HF2 INHALATION; -TRAM50TA2 PO
[2018-10-10] MEDS ORDERED: TOBRAMYCIN/DEXAMETH 3.5 GM OPH OINT ONE (06:57)
[2018-10-10] MEDS ORDERED: LIDOCAINE 1%/EPI 30 ML INJ ONE (06:57)
[2018-10-10] MEDS ORDERED: PHENYLephrine 10% 5 ML OPH ONE (06:57)
[2018-10-10] MEDS ORDERED: TETRACAINE 0.5% 4 ML OPH ONE (06:57)
[2018-10-10] MEDS ORDERED: BALANCED SALT SOLN 15 ML OPH IRRIG ONE (07:00)
--- NOTE | 2018-10-10 07:48 | PREAC ---
Date/Time of Note Date/Time of Note DATE: 10/10/18 TIME: 07:45 Anesthesia Eval and Record Evaluation Time Pre-Procedure Interview DATE: 10/10/18 TIME: 07:45 Age 63 Sex female NPO: 8 hrs Preoperative diagnosis left eye elevated pingueculum Planned procedure excision pingueculum left eye; application mitomycin Past Medical History Past Medical History: Includes Cardio: Dyslipidemia Endo: Diabetes Pulm: Asthma (well-controlled. symptoms triggered by environmental allergens) Neuro: Other (chronic back and neck pain, chronic daily intake of [address] for 2 years) Psych: Depression Surgery & Anesthesia Issues No known issue Meds Anticoagulation: No Beta Lyn within 24 hr: No Reason Beta Lyn not given: Pt. not on B-Lyn Reported Medications Albuterol Sulfate* (Proair HFA*) 8.5 Gm Hfa.aer.ad, 2 PUFF INH Q4H PRN for WH EEZING AND SOB, #1 INHALER 10/10/18 Mometasone-Formoterol (Dulera) 200-5 Mcg/Inh - 13 Gm Hfa.aer.ad, 2 PUFFS INHALATION BID, #1 INHALER 10/10/18 Atorvastatin* (Atorvastatin*) 40 Mg Tablet, 40 MG PO QHS, #30 TAB 10/10/18 Amitriptyline Hcl* (Amitriptyline Hcl*) 50 Mg Tablet, 50 MG PO QHS, #30 TAB 10/10/18 Hydrocodone/Acetaminophen ([address] 5-325 Tablet) 1 Each Tablet, 1 EACH PO Q6 PRN for PAIN, TAB 10/10/18 Metformin Hcl* (Metformin Hcl*) 500 Mg Tablet, 500 MG PO WITH BREAKFAST DINNE, #60 TAB 10/10/18 Discontinued Reported Medications [Lipitor] No Conflict Check, PO 07/18/18 [Metformin] No Conflict Check, PO 07/18/18 Hydrocodone/Acetaminophen ([address] 7.5-325 Tablet) 1 Each Tablet, 1 EACH PO TID PRN for PAIN, TAB 02/02/17 Albuterol Sulfate* (Ventolin HFA*) 18 Gm Hfa.aer.ad, 2 PUFF INHALATION Q6H PRN for WHEEZING AND SOB, #1 INHALER 02/02/17 Amitriptyline Hcl* (Amitriptyline Hcl*) 75 Mg Tablet, 75 MG PO QHS, #30 TAB 02/02/17 Current Medications Mitomycin (Mutamycin) 0.3 mg INTRA-OP LEFT EYE ; Start 10/10/18 at 06:00; Stop 10/10/18 at 12:00 Acetaminophen/ Hydrocodone Bitart ([address] (5/325)) 1 tab ONCE PO ; Start 10/10/18 at 08:00; Stop 10/10/18 at 15:00 Meds reviewed: Yes Allergies Coded Allergies: No Known Allergy (Unverified , 10/10/18) Allergies Reviewed: Yes Labs/Studies Labs Reviewed: Reviewed by anesthesiologist test: N/A Studies: ECG Pre-procedure Exam Airway: Adequate mouth opening, Adequate thyromental dist Mallampati: Mallampati II Teeth: Normal Lung: Normal Heart: Normal ASA Physical Status ASA physical status: 2 Emergency: None Planned Anesthetic General/MAC: MAC, TIVA Planned Pain Management Parenteral pain med, Local by surgeon Pre-operative Attestations Prior to commencing anesthesia and surgery, the patient was re-evaluated, there was verification of: *The patient's identity *The results of appropriate recent lab work and preoperative vital signs *The above evaluation not changing prior to induction *Anesthetic plan, risk benefits, alternative and complications discussed with patient/family; questions answered; patient/family understands, accepts and wishes to proceed. REYES MCKAY Oct 10, 2018 07:48
[2018-10-10] MEDS ORDERED: FENTAnyl 50 MCG/ML VIAL ONE (07:56)
[2018-10-10] MEDS ORDERED: PROPOFOL 20 ML ONE (07:56)
[2018-10-10] MEDS ORDERED: ALBUTEROL 0.083% (NEB) 2.5 MG/3 ML AMP HHN PRN (08:00)
[2018-10-10] MEDS ORDERED: OXYCODONE/ACETAMINOPHEN (5/325) TAB PO PRN ×2 (08:00)
[2018-10-10] MEDS ORDERED: HYDROmorphONE 1 MG/5 ML IV SYRINGE IV PRN ×3 (08:00)
[2018-10-10] MEDS ORDERED: HYDROCODONE/APAP (5/325) TAB PO SCH (08:00)
[2018-10-10] MEDS ORDERED: ONDANSETRON 4 MG INJ IV PRN (08:00)
[2018-10-10] MEDS ORDERED: LABETALOL HCL 20MG INJ IV PRN (08:00)
--- NOTE | 2018-10-10 08:36 | HPN ---
Date/Time of Note Date/Time of Note DATE: 10/10/18 TIME: 08:35 Interval H&P Admission Note Pt. seen H&P reviewed: No system changes ARAMIS SONG MD Oct 10, 2018 08:36
--- NOTE | 2018-10-10 10:06 | SIPON ---
Date/Time of Note Date/Time of Note DATE: 10/10/18 TIME: 10:01 Operative Report Preoperative Diagnosis large elevated inflammed pinguecula left eye Postoperative Diagnosis same Operation/Procedure Performed 1. excision of lesion 2. application of MMC 3. closure of defect with aedvancement flaps Surgeon jessy signature line service center assistant none Anesthesia: MAC Estimated blood loss: none Transfusion Required none Specimen none Grafts/Implants none Complications none ARAMIS SONG MD Oct 10, 2018 10:06
--- NOTE | 2018-10-10 11:11 | PAC ---
Date/Time of Note Date/Time of Note DATE: 10/10/18 TIME: 11:11 Post-Anesthesia Notes Post-Anesthesia Note Last documented vital signs Vital Signs Date Temp Pulse Resp B/P (MAP) Pulse Ox O2 O2 Flow FiO2 Time Delivery Rate 10/10/18 96.6 65 18 131/73 99 10:50 (92) 10/10/18 Room Air 10:45 Activity: WNL Respiratory function: WNL Cardiovascular function: WNL Mental status: Baseline Pain reasonably controlled: Yes Hydration appropriate: Yes Nausea/Vomiting absent: Yes REYES MCKAY Oct 10, 2018 11:11
--- NOTE | 2018-10-10 14:13 | OPR ---
DATE OF OPERATION: 10/10/2018 PREOPERATIVE DIAGNOSIS: Large elevated inflamed pinguicula, left eye. POSTOPERATIVE DIAGNOSIS: Large elevated inflamed pinguicula, left eye. OPERATION PERFORMED: Excision of lesion. 1. Following adequate sedation, a speculum was placed in the eye to control blinking. A small amoun t of 1% Xylocaine with epinephrine was injected under the lesion and after adequate anesthesia was ob tained, the lesion itself was now excised. Since the lesion was just entering the cornea, Mitomycin C was now applied for 3 minutes. At the end of 3 minutes, the eye was copiously irrigated with jahaira chris salt solution. 2. The conjunctiva was now freed from the underlying sclerae, following which multiple sutures were used to close the defect; the suture taking a superficial bite of the sclerae. There was minimal ble eding during the procedure handled with very light cautery. The eye was now copiously irrigated with 5% Betadine, following which TobraDex ointment was placed in the eye. A fairly firm pressure dressi ng was now placed so as to maintain the flaps in the position desired. [facility] in satisfactory condition. Dictated By: ARAMIS TEJADA/MERLENE Conf#: [id number] DID#: [id number]
== END 2018-10-10 11:30 | disposition home or self-care (01) ==
LOC: SDS 06:56
PROVIDERS: ATTEND Ophthalmology
DX: H11.152 Pinguecula, left eye (principal); J45.40 Moderate persistent asthma, uncomplicated; E11.9 Type 2 diabetes mellitus without complications
CPT/HCPCS: 68110; 82962; J3010; J9280; Z7512; Z7610

== ENCOUNTER 2018-12-29 09:57 | Inpatient (IN) | payer OTHER ==
[~2018-12-29] VITALS: Ht 167.6 cm; Wt 75.7 kg
[2018-12-29] VITALS (24 sets, daily range): BP systolic 102–157; BP diastolic 49–81; PULSE 61–77; RESP 6–37; Ht 167.6 cm; Wt 75.7 kg
[~2018-12-29 09:57] MED LIST changes: -ALBU18HF INHALATION; +ATOR10TA65 PO; +BIMA2.5D BOTH EYES; +GABA300C16 PO; -HYDR-4012 PO; -LIPITOR PO; -METFORMIN PO; -MITOMYCIN 5 MG INJ LEFT EYE SCH
[2018-12-29] MEDS: LACTATED RINGER'S 1,000 ML IV SCH (11:00)
[2018-12-29] MEDS ORDERED: POLYMYXIN/BACITRACIN 1L IRRIG ONE ×2 (11:53→12:03)
[2018-12-29] MEDS ORDERED: GELATIN SIZE 100 SPONGE ONE (12:03)
[2018-12-29] MEDS ORDERED: LIDOCAINE 1%/EPI 30 ML INJ ONE (12:03)
[2018-12-29] MEDS ORDERED: THROMBIN 5000 UNIT (RECOTHROM) VIAL ONE (12:03)
[2018-12-29] MEDS ORDERED: SUCCINYLCHOLINE CHLORIDE 100 MG/5 ML SYG IV ONE (12:53)
[2018-12-29] MEDS ORDERED: PROPOFOL 20 ML ONE (12:53)
[2018-12-29] MEDS ORDERED: LIDOCAINE 2% (SDV) 5 ML INJ ONE (12:53)
[2018-12-29] MEDS ORDERED: DESFLURANE 15 MIN ONE (12:53)
[2018-12-29] MEDS ORDERED: ROCURONIUM 50 MG INJ ONE (12:53)
[2018-12-29] MEDS ORDERED: MIDAZOLAM 1 MG/ML 2 ML INJ ONE (12:53)
[2018-12-29] MEDS ORDERED: METOCLOPRAMIDE 10 MG INJ IV PRN (13:00)
[2018-12-29] MEDS ORDERED: ONDANSETRON 4 MG INJ IV PRN ×2 (13:00→15:30)
[2018-12-29] MEDS ORDERED: HYDROmorphONE 1 MG/5 ML IV SYRINGE IV PRN ×2 (13:00)
[2018-12-29] MEDS ORDERED: LABETALOL HCL 20MG INJ IV PRN (13:00)
[2018-12-29] MEDS ORDERED: MEPERIDINE 25 MG INJ IV PRN (13:00)
[2018-12-29] MEDS ORDERED: DIPHENHYDRAMINE 50 MG INJ IV PRN (13:00)
[2018-12-29] MEDS ORDERED: CEFAZOLIN 1 GM INJ ONE (13:01)
[2018-12-29] MEDS ORDERED: ONDANSETRON 4 MG INJ ONE (13:01)
[2018-12-29] MEDS ORDERED: LABETALOL HCL 20MG INJ ONE (13:25)
[2018-12-29] MEDS ORDERED: SUGAMMADEX SODIUM 200 MG/2 ML VIAL IV ONE (15:14)
[2018-12-29] MEDS ORDERED: hydrALAzine 20 MG INJ IV PRN (15:30)
[2018-12-29] MEDS ORDERED: morphine 4 MG/ML VIAL IV PRN (15:30)
[2018-12-29] MEDS: HYDROmorphONE 1 MG/5 ML IV SYRINGE IV PRN ×2 (16:04→16:22)
[2018-12-29] MEDS ORDERED: GLUCOSE GEL 15 GRAM TUBE PO PRN ×2 (16:30)
[2018-12-29] MEDS ORDERED: GLUCOSE GEL 15 GRAM TUBE BUCCAL PRN (16:30)
[2018-12-29] MEDS ORDERED: DEXTROSE 50% 50 ML SYRINGE IV PRN ×2 (16:30)
[2018-12-29] MEDS ORDERED: GLUCAGON 1 MG INJ IM PRN (16:30)
[2018-12-29] MEDS: DEXTROSE 5%-LR 1,000 ML IV SCH ×2 (17:02→23:30)
[2018-12-29] MEDS: metFORMIN 500 MG TAB PO SCH (17:55)
[2018-12-29] MEDS: HYDROCODONE/APAP (7.5/325) TAB PO PRN ×2 (18:56→22:47)
[2018-12-29] MEDS: ATORVASTATIN 10 MG TAB PO SCH (20:31)
[2018-12-29] MEDS: GABAPENTIN 300 MG CAP PO SCH (20:31)
[2018-12-29] MEDS: SOD CHLORIDE 0.9% 1,000 ML IV SCH (20:49)
[2018-12-29] MEDS: AMITRIPTYLINE 25 MG TAB PO SCH (21:00)
[2018-12-29] MEDS ORDERED: BIMATOPROST 0.01% 2.5 ML BTL BOTH EYES SCH (21:00)
[2018-12-29] MEDS: LATANOPROST 0.005% 2.5 ML OPH BOTH EYES SCH (21:00)
[2018-12-29] MEDS: CEFAZOLIN 1 GM/50 ML (PMX) 50 ML IVPB SCH (22:28)
[2018-12-29] MEDS ORDERED: ALBUTEROL/IPRATROPIUM (NEB) 3 ML AMP HHN PRN (23:30)
[2018-12-29] MEDS: HYDROmorphONE 1 MG/ML SYG IV PRN (23:49)
[2018-12-30 00:41] VITALS: BP 123/57; PULSE 63; RESP 20
[2018-12-30] MEDS: HYDROmorphONE 1 MG/ML SYG IV PRN ×6 (03:09→20:22)
[2018-12-30] MEDS: CEFAZOLIN 1 GM/50 ML (PMX) 50 ML IVPB SCH ×3 (05:24→21:13)
[2018-12-30] MEDS: SOD CHLORIDE 0.9% 1,000 ML IV SCH ×2 (05:30→18:14)
[2018-12-30 07:22] VITALS: BP 101/64; PULSE 80; RESP 19
[2018-12-30] MEDS: INSULIN ASPART [NOVOLOG] 3 ML PEN SC SCH ×4 (07:30→20:21)
[2018-12-30] MEDS: metFORMIN 500 MG TAB PO SCH ×2 (08:03→18:13)
[2018-12-30] MEDS: LACTATED RINGER'S 1,000 ML IV SCH (11:00)
[2018-12-30 12:46] VITALS: BP 116/60; PULSE 90; RESP 19
[2018-12-30] MEDS: METHOCARBAMOL 750 MG TAB PO PRN (18:51)
[2018-12-30] MEDS: HYDROCODONE/APAP (7.5/325) TAB PO PRN (18:51)
[2018-12-30 19:32] VITALS: BP 100/60; PULSE 64; RESP 18
[2018-12-30] MEDS: GABAPENTIN 300 MG CAP PO SCH (20:20)
[2018-12-30] MEDS: AMITRIPTYLINE 25 MG TAB PO SCH (20:21)
[2018-12-30] MEDS: ATORVASTATIN 10 MG TAB PO SCH (20:21)
[2018-12-30] MEDS: LATANOPROST 0.005% 2.5 ML OPH BOTH EYES SCH (20:31)
[2018-12-31] MEDS: HYDROmorphONE 1 MG/ML SYG IV PRN ×6 (03:01→22:21)
[2018-12-31] MEDS: METHOCARBAMOL 750 MG TAB PO PRN ×2 (04:06→16:34)
[2018-12-31] MEDS: SOD CHLORIDE 0.9% 1,000 ML IV SCH ×4 (04:06→23:00)
[2018-12-31] MEDS: CEFAZOLIN 1 GM/50 ML (PMX) 50 ML IVPB SCH ×3 (05:29→22:13)
[2018-12-31] MEDS: INSULIN ASPART [NOVOLOG] 3 ML PEN SC SCH ×4 (07:30→20:37)
[2018-12-31 08:11] VITALS: BP 95/50; PULSE 80; RESP 14
[2018-12-31] MEDS: metFORMIN 500 MG TAB PO SCH ×2 (08:13→17:55)
[2018-12-31] MEDS: HYDROCODONE/APAP (7.5/325) TAB PO PRN ×3 (08:15→18:56)
[2018-12-31] MEDS: LACTATED RINGER'S 1,000 ML IV SCH (11:00)
[2018-12-31] MEDS ORDERED: PATIENT'S OWN MEDICATION INH SCH (13:30)
[2018-12-31 17:20] VITALS: BP 115/58; PULSE 79; RESP 18
[2018-12-31 19:55] VITALS: BP 119/57; PULSE 85; RESP 20
[2018-12-31] MEDS: DEXAMETHASONE 4 MG/ML 1 ML INJ IV SCH (20:28)
[2018-12-31] MEDS: DOCUSATE SODIUM 100 MG CAP PO SCH (20:37)
[2018-12-31] MEDS: AMITRIPTYLINE 25 MG TAB PO SCH (20:37)
[2018-12-31] MEDS: LATANOPROST 0.005% 2.5 ML OPH BOTH EYES SCH (20:37)
[2018-12-31] MEDS: ATORVASTATIN 10 MG TAB PO SCH (20:37)
[2018-12-31] MEDS: GABAPENTIN 300 MG CAP PO SCH (20:37)
[2019-01-01] MEDS: HYDROmorphONE 1 MG/ML SYG IV PRN ×3 (01:55→14:18)
[2019-01-01] MEDS: DEXAMETHASONE 4 MG/ML 1 ML INJ IV SCH ×4 (01:55→18:08)
[2019-01-01 02:56] VITALS: BP 119/64; PULSE 76; RESP 20
[2019-01-01] MEDS: METHOCARBAMOL 750 MG TAB PO PRN ×2 (04:11→12:30)
[2019-01-01] MEDS: HYDROCODONE/APAP (7.5/325) TAB PO PRN ×4 (04:12→21:35)
[2019-01-01] MEDS: SOD CHLORIDE 0.9% 1,000 ML IV SCH ×2 (04:14→09:00)
[2019-01-01 07:33] VITALS: BP 117/63; PULSE 71; RESP 18
[2019-01-01] MEDS: DOCUSATE SODIUM 100 MG CAP PO SCH ×2 (08:29→20:45)
[2019-01-01] MEDS: INSULIN ASPART [NOVOLOG] 3 ML PEN SC SCH ×4 (08:31→20:54)
[2019-01-01] MEDS: metFORMIN 500 MG TAB PO SCH ×2 (08:33→18:10)
[2019-01-01 14:26] VITALS: BP 113/73; PULSE 70; RESP 19
[2019-01-01 19:32] VITALS: BP 130/63; PULSE 83; RESP 20
[2019-01-01] MEDS: AMITRIPTYLINE 25 MG TAB PO SCH (20:46)
[2019-01-01] MEDS: GABAPENTIN 300 MG CAP PO SCH (20:46)
[2019-01-01] MEDS: ATORVASTATIN 10 MG TAB PO SCH (20:46)
[2019-01-01] MEDS ORDERED: HYDROmorphONE 1 MG/ML SYG IV PRN (21:30)
[2019-01-01] MEDS: LATANOPROST 0.005% 2.5 ML OPH BOTH EYES SCH (21:35)
[2019-01-02 02:00] VITALS: BP 142/71; RESP 18
[2019-01-02] MEDS: HYDROmorphONE 1 MG/ML SYG IV PRN ×5 (03:09→21:17)
[2019-01-02] MEDS: HYDROCODONE/APAP (7.5/325) TAB PO PRN ×4 (05:51→19:31)
[2019-01-02 08:15] VITALS: BP 114/56; PULSE 70; RESP 18
[2019-01-02] MEDS: DOCUSATE SODIUM 100 MG CAP PO SCH ×2 (08:45→21:12)
[2019-01-02] MEDS: metFORMIN 500 MG TAB PO SCH ×2 (08:46→18:02)
[2019-01-02] MEDS: INSULIN ASPART [NOVOLOG] 3 ML PEN SC SCH ×4 (08:46→21:00)
[2019-01-02] MEDS: FLUTICASONE/VILANTEROL 200-25 INH DEVICE INH SCH (08:48)
[2019-01-02] MEDS: METHOCARBAMOL 750 MG TAB PO PRN (15:04)
[2019-01-02 16:02] VITALS: BP 141/71; PULSE 69; RESP 18
[2019-01-02 19:40] VITALS: BP 138/73; PULSE 77; RESP 20
[2019-01-02] MEDS: GABAPENTIN 300 MG CAP PO SCH (21:12)
[2019-01-02] MEDS: AMITRIPTYLINE 25 MG TAB PO SCH (21:12)
[2019-01-02] MEDS: ATORVASTATIN 10 MG TAB PO SCH (21:13)
[2019-01-02] MEDS: LATANOPROST 0.005% 2.5 ML OPH BOTH EYES SCH (21:16)
[2019-01-03] MEDS: HYDROmorphONE 1 MG/ML SYG IV PRN ×5 (03:59→21:35)
[2019-01-03] MEDS: HYDROCODONE/APAP (7.5/325) TAB PO PRN ×3 (07:15→18:08)
[2019-01-03] MEDS: INSULIN ASPART [NOVOLOG] 3 ML PEN SC SCH ×4 (07:30→21:00)
[2019-01-03 07:56] VITALS: BP 117/67; PULSE 75; RESP 18
[2019-01-03] MEDS: metFORMIN 500 MG TAB PO SCH ×2 (08:57→18:08)
[2019-01-03] MEDS: DOCUSATE SODIUM 100 MG CAP PO SCH ×2 (08:57→21:32)
[2019-01-03] MEDS: FLUTICASONE/VILANTEROL 200-25 INH DEVICE INH SCH (08:58)
[2019-01-03] MEDS: METHOCARBAMOL 750 MG TAB PO PRN ×2 (11:42→23:12)
[2019-01-03 13:57] VITALS: BP 138/68; PULSE 85; RESP 17
[2019-01-03 20:37] VITALS: BP 155/75; PULSE 70; RESP 18
[2019-01-03] MEDS: AMITRIPTYLINE 25 MG TAB PO SCH (21:32)
[2019-01-03] MEDS: GABAPENTIN 300 MG CAP PO SCH (21:32)
[2019-01-03] MEDS: ATORVASTATIN 10 MG TAB PO SCH (21:32)
[2019-01-03] MEDS: LATANOPROST 0.005% 2.5 ML OPH BOTH EYES SCH (21:37)
[2019-01-04] MEDS: HYDROmorphONE 1 MG/ML SYG IV PRN ×6 (02:08→23:27)
[2019-01-04 02:34] VITALS: BP 125/67; PULSE 77; RESP 18
[2019-01-04] MEDS: HYDROCODONE/APAP (7.5/325) TAB PO PRN ×5 (05:43→22:39)
[2019-01-04 07:21] VITALS: BP 116/67; PULSE 78; RESP 18
[2019-01-04] MEDS: INSULIN ASPART [NOVOLOG] 3 ML PEN SC SCH ×4 (07:30→21:00)
[2019-01-04] MEDS: metFORMIN 500 MG TAB PO SCH ×2 (08:56→18:21)
[2019-01-04] MEDS: FLUTICASONE/VILANTEROL 200-25 INH DEVICE INH SCH (08:56)
[2019-01-04] MEDS: DOCUSATE SODIUM 100 MG CAP PO SCH ×2 (08:56→20:36)
[2019-01-04] MEDS: METHOCARBAMOL 750 MG TAB PO PRN ×2 (08:59→20:40)
[2019-01-04 16:16] VITALS: BP 129/67; PULSE 73; RESP 18
[2019-01-04] MEDS: ATORVASTATIN 10 MG TAB PO SCH (20:34)
[2019-01-04] MEDS: GABAPENTIN 300 MG CAP PO SCH (20:34)
[2019-01-04] MEDS: AMITRIPTYLINE 25 MG TAB PO SCH (20:36)
[2019-01-04] MEDS: LATANOPROST 0.005% 2.5 ML OPH BOTH EYES SCH (20:40)
[2019-01-04 20:48] VITALS: BP 133/65; PULSE 84; RESP 18
[2019-01-05] MEDS: HYDROmorphONE 1 MG/ML SYG IV PRN ×7 (02:26→22:39)
[2019-01-05 02:32] VITALS: BP 159/80; PULSE 72; RESP 18
[2019-01-05] MEDS: HYDROCODONE/APAP (7.5/325) TAB PO PRN ×5 (03:34→22:02)
[2019-01-05] MEDS: INSULIN ASPART [NOVOLOG] 3 ML PEN SC SCH ×4 (07:30→21:00)
[2019-01-05 07:35] VITALS: BP 139/71; PULSE 92; RESP 18
[2019-01-05] MEDS: metFORMIN 500 MG TAB PO SCH ×2 (08:07→17:46)
[2019-01-05] MEDS: DOCUSATE SODIUM 100 MG CAP PO SCH ×2 (08:07→21:27)
[2019-01-05] MEDS: FLUTICASONE/VILANTEROL 200-25 INH DEVICE INH SCH (08:08)
[2019-01-05 14:11] VITALS: BP 145/91; PULSE 67; RESP 18
[2019-01-05 19:40] VITALS: BP 130/77; PULSE 75; RESP 20
[2019-01-05] MEDS: ATORVASTATIN 10 MG TAB PO SCH (21:27)
[2019-01-05] MEDS: GABAPENTIN 300 MG CAP PO SCH (21:27)
[2019-01-05] MEDS: AMITRIPTYLINE 25 MG TAB PO SCH (21:27)
[2019-01-05] MEDS: LATANOPROST 0.005% 2.5 ML OPH BOTH EYES SCH (21:32)
[2019-01-05] MEDS: METHOCARBAMOL 750 MG TAB PO PRN (21:32)
[2019-01-06] MEDS: HYDROmorphONE 1 MG/ML SYG IV PRN ×7 (01:39→23:51)
[2019-01-06 02:40] VITALS: BP 124/68; PULSE 79; RESP 20
[2019-01-06] MEDS: HYDROCODONE/APAP (7.5/325) TAB PO PRN ×4 (04:00→19:58)
[2019-01-06] MEDS: INSULIN ASPART [NOVOLOG] 3 ML PEN SC SCH ×4 (07:30→20:59)
[2019-01-06 07:32] VITALS: BP 131/73; PULSE 86; RESP 19
[2019-01-06] MEDS: metFORMIN 500 MG TAB PO SCH ×2 (08:06→17:59)
[2019-01-06] MEDS: DOCUSATE SODIUM 100 MG CAP PO SCH ×2 (09:46→20:54)
[2019-01-06 14:45] VITALS: BP 128/66; PULSE 72; RESP 18
[2019-01-06] MEDS: FLUTICASONE/VILANTEROL 200-25 INH DEVICE INH SCH (14:49)
[2019-01-06 19:15] VITALS: BP 144/79; PULSE 95; RESP 20
[2019-01-06] MEDS: LATANOPROST 0.005% 2.5 ML OPH BOTH EYES SCH (20:54)
[2019-01-06] MEDS: AMITRIPTYLINE 25 MG TAB PO SCH (20:54)
[2019-01-06] MEDS: GABAPENTIN 300 MG CAP PO SCH (20:54)
[2019-01-06] MEDS: ATORVASTATIN 10 MG TAB PO SCH (20:54)
[2019-01-07] MEDS: HYDROCODONE/APAP (7.5/325) TAB PO PRN ×4 (01:21→22:23)
[2019-01-07 02:00] VITALS: BP 104/58; PULSE 81; RESP 20
[2019-01-07 02:05] VITALS: BP 137/68; PULSE 70; RESP 20
[2019-01-07] MEDS: HYDROmorphONE 1 MG/ML SYG IV PRN ×5 (03:51→19:53)
[2019-01-07] MEDS: INSULIN ASPART [NOVOLOG] 3 ML PEN SC SCH ×4 (07:30→20:50)
[2019-01-07] MEDS: metFORMIN 500 MG TAB PO SCH ×2 (07:52→18:14)
[2019-01-07] MEDS: DOCUSATE SODIUM 100 MG CAP PO SCH ×2 (08:40→20:43)
[2019-01-07] MEDS: FLUTICASONE/VILANTEROL 200-25 INH DEVICE INH SCH (08:41)
[2019-01-07 09:22] VITALS: BP 118/68; PULSE 74; RESP 17
[2019-01-07] MEDS: METHOCARBAMOL 750 MG TAB PO PRN ×2 (10:43→22:23)
[2019-01-07] MEDS ORDERED: BISACODYL (EC) 5 MG TAB PO PRN (14:30)
[2019-01-07] MEDS ORDERED: AL HYDROX/MG HYDROX/SIMETH 30 ML CUP PO ONE (14:30)
[2019-01-07] MEDS ORDERED: AL HYDROX/MG HYDROX/SIMETH 30 ML CUP PO PRN (14:30)
[2019-01-07] MEDS: PANTOPRAZOLE (EC) 40 MG TAB PO SCH (14:31)
[2019-01-07 15:00] VITALS: BP 152/81; PULSE 95; RESP 18
[2019-01-07 19:12] VITALS: BP 140/71; PULSE 87; RESP 20
[2019-01-07] MEDS: GABAPENTIN 300 MG CAP PO SCH (20:43)
[2019-01-07] MEDS: ATORVASTATIN 10 MG TAB PO SCH (20:43)
[2019-01-07] MEDS: LATANOPROST 0.005% 2.5 ML OPH BOTH EYES SCH (20:43)
[2019-01-07] MEDS: AMITRIPTYLINE 25 MG TAB PO SCH (20:43)
[2019-01-08] MEDS: HYDROmorphONE 1 MG/ML SYG IV PRN ×7 (01:37→23:27)
[2019-01-08 02:42] VITALS: BP 122/64; PULSE 72; RESP 20
[2019-01-08] MEDS: HYDROCODONE/APAP (7.5/325) TAB PO PRN ×4 (06:23→22:10)
[2019-01-08] MEDS: PANTOPRAZOLE (EC) 40 MG TAB PO SCH (06:23)
[2019-01-08] MEDS: INSULIN ASPART [NOVOLOG] 3 ML PEN SC SCH ×4 (07:30→21:00)
[2019-01-08] MEDS: metFORMIN 500 MG TAB PO SCH ×2 (07:54→17:46)
[2019-01-08 08:10] VITALS: BP 140/88; PULSE 91; RESP 18
[2019-01-08] MEDS: DOCUSATE SODIUM 100 MG CAP PO SCH ×2 (08:38→22:10)
[2019-01-08] MEDS: FLUTICASONE/VILANTEROL 200-25 INH DEVICE INH SCH (08:38)
[2019-01-08 15:26] VITALS: BP 120/76; PULSE 77; RESP 18
[2019-01-08] MEDS ORDERED: BETAMET NA PHOS/AC (6 MG/ML) 5ML INJ INJ ONE (18:30)
[2019-01-08] MEDS ORDERED: BUPIVACAINE 0.5%/EPI (SDV) 30 ML INJ INJ ONE ×2 (18:30→19:00)
[2019-01-08 19:51] VITALS: BP 140/67; PULSE 86; RESP 18
[2019-01-08] MEDS: GABAPENTIN 300 MG CAP PO SCH (22:10)
[2019-01-08] MEDS: AMITRIPTYLINE 25 MG TAB PO SCH (22:10)
[2019-01-08] MEDS: METHOCARBAMOL 750 MG TAB PO PRN (22:10)
[2019-01-08] MEDS: ATORVASTATIN 10 MG TAB PO SCH (22:11)
[2019-01-08] MEDS: LATANOPROST 0.005% 2.5 ML OPH BOTH EYES SCH (22:13)
[2019-01-09 02:10] VITALS: BP 130/68; PULSE 72; RESP 20
[2019-01-09] MEDS: HYDROCODONE/APAP (7.5/325) TAB PO PRN ×4 (02:26→22:24)
[2019-01-09] MEDS: HYDROmorphONE 1 MG/ML SYG IV PRN ×6 (03:36→23:40)
[2019-01-09] MEDS: PANTOPRAZOLE (EC) 40 MG TAB PO SCH (06:17)
[2019-01-09] MEDS: INSULIN ASPART [NOVOLOG] 3 ML PEN SC SCH ×4 (07:30→20:04)
[2019-01-09 07:55] VITALS: BP 118/73; PULSE 70; RESP 18
[2019-01-09] MEDS: DOCUSATE SODIUM 100 MG CAP PO SCH ×2 (07:59→20:01)
[2019-01-09] MEDS: metFORMIN 500 MG TAB PO SCH ×2 (08:00→18:17)
[2019-01-09] MEDS: FLUTICASONE/VILANTEROL 200-25 INH DEVICE INH SCH (08:00)
[2019-01-09 14:06] VITALS: BP 127/86; PULSE 71; RESP 18
[2019-01-09] MEDS: GABAPENTIN 300 MG CAP PO SCH (20:00)
[2019-01-09] MEDS: ATORVASTATIN 10 MG TAB PO SCH (20:01)
[2019-01-09] MEDS: AMITRIPTYLINE 25 MG TAB PO SCH (20:01)
[2019-01-09] MEDS: LATANOPROST 0.005% 2.5 ML OPH BOTH EYES SCH (20:02)
[2019-01-09] MEDS: METHOCARBAMOL 750 MG TAB PO PRN (20:12)
[2019-01-10 02:05] VITALS: BP 126/68; PULSE 77; RESP 18
[2019-01-10] MEDS: HYDROCODONE/APAP (7.5/325) TAB PO PRN ×3 (02:15→14:33)
[2019-01-10] MEDS: PANTOPRAZOLE (EC) 40 MG TAB PO SCH (06:35)
[2019-01-10] MEDS: HYDROmorphONE 1 MG/ML SYG IV PRN ×4 (06:35→16:15)
[2019-01-10 07:25] VITALS: BP 119/68; PULSE 77; RESP 18
[2019-01-10] MEDS: DOCUSATE SODIUM 100 MG CAP PO SCH (08:07)
[2019-01-10] MEDS: metFORMIN 500 MG TAB PO SCH (08:07)
[2019-01-10] MEDS: FLUTICASONE/VILANTEROL 200-25 INH DEVICE INH SCH (08:08)
[2019-01-10] MEDS: INSULIN ASPART [NOVOLOG] 3 ML PEN SC SCH ×2 (08:09→12:25)
[2019-01-10] MEDS: METHOCARBAMOL 750 MG TAB PO PRN (09:34)
[2019-01-10 13:24] VITALS: BP 142/80; PULSE 100; RESP 18
== END 2019-01-10 18:46 | disposition home or self-care (01) | DRG 519 ==
LOC: SDS 09:57 → SUR 09:57 → REC 15:25 → SUR 15:25 → MS1 16:57
PROVIDERS: ADMIT Neurological Surgery; ATTEND Neurological Surgery
PROC: 0SP004Z Removal of Internal Fixation Device from Lumbar Vertebral Joint, Open Approach (ICD-10-PCS; 2018-12-29)
PROC: 01NB0ZZ Release Lumbar Nerve, Open Approach (ICD-10-PCS; 2018-12-29)
PROC: 00NY0ZZ Release Lumbar Spinal Cord, Open Approach (ICD-10-PCS; principal; 2018-12-29 12:00)
PROC: 3E0U33Z Introduction of Anti-inflammatory into Joints, Percutaneous Approach (ICD-10-PCS; 2019-01-09)
PROC: 3E0U3BZ Introduction of Anesthetic Agent into Joints, Percutaneous Approach (ICD-10-PCS; 2019-01-09)
DX: M47.26 Other spondylosis with radiculopathy, lumbar region (principal); T84.84XA Pain due to internal orthopedic prosthetic devices, implants and grafts, initial encounter; G90.522 Complex regional pain syndrome I of left lower limb; M47.27 Other spondylosis with radiculopathy, lumbosacral region; M48.061 Spinal stenosis, lumbar region without neurogenic claudication; M48.07 Spinal stenosis, lumbosacral region; E11.9 Type 2 diabetes mellitus without complications; F32.9 Major depressive disorder, single episode, unspecified; G89.18 Other acute postprocedural pain; J45.909 Unspecified asthma, uncomplicated; M70.62 Trochanteric bursitis, left hip; M25.572 Pain in left ankle and joints of left foot; Y83.8 Other surgical procedures as the cause of abnormal reaction of the patient, or of later complication, without mention of misadventure at the time of the procedure; Y93.9 Activity, unspecified; Z98.1 Arthrodesis status; Z79.84 Long term (current) use of oral hypoglycemic drugs
CPT/HCPCS: 72100; 73562; 73610; 80048; 82962; 85025; 86850; 86900; 86901; 87086; 88300; 97110; 97116; 97161; 97530; J0690; J0702; J1100; J1170; J1815; J2250; J2270; J2405; J3010; J7030; J7120; J7121